=== PATIENT | male | born 1950 | race African-American/Black ===

== ENCOUNTER 2019-02-07 13:56 | Inpatient (IN) | payer OTHER ==
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
[2019-02-07] MEDS ORDERED: SODIUM CHLORIDE 0.9% 500 ML INFUS.BAG IV ONE (14:23)
[2019-02-07 15:02] LABS: BASO % 0.8 % (0-2.0); EOS % 1.1 % (0-4.5); HEMOGLOBIN 12.7 GM/dL (11.7-16.9); LYMPH % 14.6 % (8-40); MCH 28.5 pg (25.7-33.7); MCHC 32.5 g/dl (32.0-35.9); MEAN CELL VOLUME 87.7 fl (80-96); MEAN PLT VOLUME 9.5 fl (7.5-11.1); MONO % 5.6 % (3.8-10.2); NEUT % 77.9 % (42.8-82.8); PLATELET COUNT 209 K/MM3 (134-434); RBC 4.45 M/mm3 (4.00-5.60); RDW 13.6 % (11.9-15.9); WHITE BLOOD COUNT 6.7 K/mm3 (4.0-10.0)
[2019-02-07 15:53] LABS: ALBUMIN 3.4 g/dl (3.4-5.0); BILIRUBIN,TOTAL 0.3 mg/dL (0.2-1); BLOOD UREA NITROGEN 20.7 mg/dL (7-18); CALCIUM 8.9 mg/dL (8.5-10.1); CREATININE 1.5 mg/dL (0.55-1.3); MAGNESIUM 2.5 mg/dL (1.8-2.4); PHOSPHOROUS 2.9 mg/dL (2.5-4.9); POTASSIUM 4.5 mmol/L (3.5-5.1); TOT PROT 6.8 g/dl (6.4-8.2)
[2019-02-07] MEDS ORDERED: INSULIN REGULAR HUMAN 100 UNITS/ML *VIAL SQ ONE (16:02)
[2019-02-07] MEDS ORDERED: INSULIN REGULAR HUMAN 100 UNITS/ML *VIAL ONE (16:17)
--- NOTE | 2019-02-07 16:40 | PDOC ---
Documentation entered by Tony Grace SCRIBE, acting as scribe for Chase Arenas MD. Chase Arenas MD: This documentation has been prepared by the Sanjay reynaga Collisia, SCRIBE, under my direction and personally reviewed by me in its entirety. I confirm that the documentation accurately reflects all work, treatment, procedures, and medical decision making performed by me. Attending Attestation - Resident Resident Name: Lisandro Chatterjee - ED Attending Attestation I have performed the following: I have examined & evaluated the patient, The case was reviewed & discussed with the resident, I agree w/resident's findings & plan - HPI HPI: 02/07/19 16:37 68-year-old male with history of diabetes and substance abuse sent from [facility] detox for medical evaluation of hyperglycemia. Patient has been on alcohol and crack binge, has been noncompliant with his metformin for several weeks, presented to [facility] for detox and was noted to be hyperglycemic so they referred him for evaluation. Admits to polydipsia and polyuria, denies any falls or head injury or headache, no heart or pulmonary complaints, no infectious complaints. - Physicial Exam PE: 02/07/19 16:38 Hemodynamically stable, vital signs normal Well-appearing lying in stretcher, dry mucosa No jaundice or pallor Heart is regular, lungs are clear Abdomen benign Right thigh anterior lateral soft tissue hematoma which is tender to palpation, no obvious bony deformity or tenderness, full range of motion of hip and knee, neurovascularly intact distally. - Medical Decision Making 02/07/19 16:39 68-year-old male with history of diabetes noncompliant with medication, substance abuse, sent for evaluation of hyperglycemia. Rule out DKA, rule out finger fracture from injury. Labs notable for glucose overnight, anion gap normal, acetone negative Right femur x-ray IV fluids Admission Heart Score/ECG Review #1 ECG reviewed & interpreted by me at: 15:19 General ECG Interpretation: Sinus Rhythm, Normal Rate (62), Normal Intervals ( qtc 397), No acute ischemic changes
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
[2019-02-07] MEDS ORDERED: chlordiazePOXIDE HCL 25 MG CAPSULE PO PRN (17:55)
[2019-02-07] MEDS: SODIUM CHLORIDE 1,000 ML IV SCH (18:27)
[2019-02-07] MEDS ORDERED: chlordiazePOXIDE HCL 25 MG CAPSULE ONE (18:49)
[2019-02-07] MEDS: chlordiazePOXIDE HCL 25 MG CAPSULE PO SCH (18:54)
[2019-02-07 20:41] LABS: ALBUMIN 3.2 g/dl (3.4-5.0); BILIRUBIN,TOTAL 0.6 mg/dL (0.2-1); CALCIUM 8.4 mg/dL (8.5-10.1); CREATININE 1.2 mg/dL (0.55-1.3); POTASSIUM 4.4 mmol/L (3.5-5.1); TOT PROT 6.2 g/dl (6.4-8.2)
[2019-02-07] MEDS ORDERED: FOLIC ACID INJECTION - 1 MG, THIAMINE HCL 100 MG, MULTIVIT INJECTION ADULT 10 ML in SOD... IVPB ONE (21:42)
[2019-02-07] MEDS ORDERED: INSULIN (NOVOLOG) ASPART 100 UNITS/ML 10ML VIAL ONE (23:04)
[2019-02-07] MEDS: INSULIN SLIDING SCALE (NOVOLOG) 1 VIAL SQ SCH (23:07)
[2019-02-07] MEDS: HALOPERIDOL 5 MG TABLET (FP) PO SCH (23:32)
[2019-02-07] MEDS: INSULIN (LEVEMIR) 100 UNITS/ML UNITS SQ SCH (23:52)
[2019-02-08] MEDS ORDERED: chlordiazePOXIDE HCL 25 MG CAPSULE ONE ×3 (00:31→11:03)
[2019-02-08] MEDS: chlordiazePOXIDE HCL 25 MG CAPSULE PO SCH ×5 (00:34→23:00)
[2019-02-08 01:16] LABS: PH,URINE 5.5 (5.0-8.0); URINE APPEARANCE CLEAR; URINE BILIRUBIN NEGATIVE (NEGATIVE); URINE COLOR YELLOW; URINE GLUCOSE (UA) 3+ (NEGATIVE); URINE KETONE NEGATIVE (NEGATIVE); URINE LEUK ESTERASE NEGATIVE (NEGATIVE); URINE NITRITE NEGATIVE (NEGATIVE); URINE PROTEIN NEGATIVE (NEGATIVE)
[2019-02-08 05:35] LABS: ALBUMIN 2.8 g/dl (3.4-5.0); BILIRUBIN,TOTAL 0.4 mg/dL (0.2-1); BLOOD UREA NITROGEN 16.1 mg/dL (7-18); CALCIUM 7.8 mg/dL (8.5-10.1); CREATININE 0.9 mg/dL (0.55-1.3); POTASSIUM 4.4 mmol/L (3.5-5.1)
[2019-02-08] MEDS ORDERED: INSULIN (NOVOLOG) ASPART 100 UNITS/ML 10ML VIAL ONE ×3 (07:26→14:18)
[2019-02-08] MEDS: INSULIN SLIDING SCALE (NOVOLOG) 1 VIAL SQ SCH ×4 (07:31→21:50)
--- NOTE | 2019-02-08 08:29 | EKG ---
Test Reason : Blood Pressure : / mmHG Vent. Rate : 062 BPM Atrial Rate : 062 BPM P-R Int : 138 ms QRS Dur : 108 ms QT Int : 392 ms P-R-T Axes : 060 -02 -18 degrees QTc Int : 397 ms NORMAL SINUS RHYTHM NONSPECIFIC T WAVE ABNORMALITY ABNORMAL ECG NO PREVIOUS ECGS AVAILABLE Confirmed by BRITTNI LEONG, LISET ([id number]) on 02/08/2019 8:29:04 AM Referred By: Confirmed By:LISET LEKINS MD
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
[2019-02-08 10:11] LABS: BASO % 0.8 % (0-2.0); EOS % 1.4 % (0-4.5); HEMATOCRIT 35.2 % (35.4-49); HEMOGLOBIN 11.5 GM/dL (11.7-16.9); LYMPH % 24.4 % (8-40); MCH 28.2 pg (25.7-33.7); MCHC 32.7 g/dl (32.0-35.9); MEAN CELL VOLUME 86.5 fl (80-96); MEAN PLT VOLUME 8.7 fl (7.5-11.1); MONO % 5.9 % (3.8-10.2); NEUT % 67.5 % (42.8-82.8); PLATELET COUNT 191 K/MM3 (134-434); RBC 4.07 M/mm3 (4.00-5.60); RDW 13.6 % (11.9-15.9); WHITE BLOOD COUNT 5.8 K/mm3 (4.0-10.0)
[2019-02-08 10:35] LABS: ALBUMIN 2.6 g/dl (3.4-5.0); BILIRUBIN,TOTAL 0.4 mg/dL (0.2-1); CALCIUM 7.9 mg/dL (8.5-10.1); MAGNESIUM 2.1 mg/dL (1.8-2.4); POTASSIUM 3.9 mmol/L (3.5-5.1); TOT PROT 5.5 g/dl (6.4-8.2)
[2019-02-08] MEDS: FOLIC ACID 1 MG TABLET (FP) PO SCH (11:00)
[2019-02-08] MEDS: ASPIRIN COATED 81 MG TABLET.EC PO SCH (11:00)
[2019-02-08] MEDS: INSULIN (LEVEMIR) 100 UNITS/ML UNITS SQ SCH ×2 (11:00→21:49)
[2019-02-08] MEDS ORDERED: ASPIRIN COATED 81 MG TABLET.EC ONE (11:02)
[2019-02-08] MEDS ORDERED: FOLIC ACID 1 MG TABLET (FP) ONE (11:04)
[2019-02-08] MEDS ORDERED: THIAMINE HCL 100 MG TABLET (FP) ONE (11:04)
[2019-02-08] MEDS ORDERED: INSULIN (LEVEMIR) 100 UNITS/ML UNITS SQ ONE (11:06)
[2019-02-08] MEDS: THIAMINE HCL 100 MG TABLET (FP) PO SCH (11:54)
[2019-02-08] MEDS ORDERED: oxyCODONE HCL 5 MG TABLET PO ONE (12:38)
[2019-02-08] MEDS ORDERED: LIDOCAINE 5% TOPICAL PATCH TP ONE (12:39)
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
[2019-02-08] MEDS ORDERED: oxyCODONE HCL 5 MG TABLET ONE (14:16)
[2019-02-08] MEDS ORDERED: LIDOCAINE 5% TOPICAL PATCH ONE (14:17)
[2019-02-08 14:31] LABS: ANISOCYTOSIS 2+; MACROCYTOSIS 0; PLATELET ESTIMATE NORMAL
[2019-02-08 15:28] VITALS: BMI 28.2
[2019-02-08] MEDS: SODIUM CHLORIDE 1,000 ML IV SCH (20:00)
[2019-02-08] MEDS: HALOPERIDOL 5 MG TABLET (FP) PO SCH (21:48)
[2019-02-08] MEDS ORDERED: INSULIN (LEVEMIR) 100 UNITS/ML UNITS SQ SCH (22:00)
[2019-02-08] MEDS ORDERED: LIDOCAINE PATCH REMOVAL MC ONE (22:00)
[2019-02-08] MEDS ORDERED: ACETAMINOPHEN 325 MG TABLET (FP) PO PRN (22:22)
[2019-02-09] MEDS: chlordiazePOXIDE HCL 25 MG CAPSULE PO SCH ×2 (05:00→10:36)
[2019-02-09] MEDS ORDERED: metFORMIN HCL 500 MG TABLET (FP) PO SCH (07:00)
[2019-02-09] MEDS: INSULIN (LEVEMIR) 100 UNITS/ML UNITS SQ SCH (07:01)
[2019-02-09] MEDS: INSULIN SLIDING SCALE (NOVOLOG) 1 VIAL SQ SCH ×2 (07:01→11:18)
[2019-02-09 08:00] LABS: BASO % 0.8 % (0-2.0); EOS % 1.1 % (0-4.5); HEMATOCRIT 35.9 % (35.4-49); HEMOGLOBIN 11.8 GM/dL (11.7-16.9); LYMPH % 21.2 % (8-40); MCH 28.1 pg (25.7-33.7); MCHC 32.8 g/dl (32.0-35.9); MEAN CELL VOLUME 85.9 fl (80-96); MEAN PLT VOLUME 9.1 fl (7.5-11.1); MONO % 5.2 % (3.8-10.2); NEUT % 71.7 % (42.8-82.8); PLATELET COUNT 198 K/MM3 (134-434); RBC 4.18 M/mm3 (4.00-5.60); RDW 13.6 % (11.9-15.9)
[2019-02-09 08:46] LABS: ALBUMIN 2.8 g/dl (3.4-5.0); BILIRUBIN,TOTAL 0.2 mg/dL (0.2-1); BLOOD UREA NITROGEN 15.2 mg/dL (7-18); CALCIUM 8.3 mg/dL (8.5-10.1); CREATININE 0.9 mg/dL (0.55-1.3); POTASSIUM 3.7 mmol/L (3.5-5.1); TOT PROT 5.6 g/dl (6.4-8.2)
--- NOTE | 2019-02-09 08:56 | PN ---
Progress Note (short form) - Note Progress Note: Feels better Less urination Vital Signs Period Temp Pulse Resp BP Sys/Chavarria Pulse Ox Last 24 Hr 97.8 F-98 F 57-80 18-20 94-117/65-68 99-99 PE: AOx3 Neck: Supple, NO JVD HEENT: EOMI Lungs: CTA CVS: S1S2 Abd: Benign EXt: No edema Neuro: No focal deficit CMP Sodium 141 mmol/L (136-145) 02/09/19 06:40 Potassium 3.7 mmol/L (3.5-5.1) 02/09/19 06:40 Chloride 109 mmol/L (98-107) H 02/09/19 06:40 Carbon Dioxide 25 mmol/L (21-32) 02/09/19 06:40 Anion Gap 7 MMOL/L (8-16) L 02/09/19 06:40 BUN 15.2 mg/dL (7-18) 02/09/19 06:40 Creatinine 0.9 mg/dL (0.55-1.3) 02/09/19 06:40 Est GFR (CKD-EPI)AfAm 101.36 02/09/19 06:40 Est GFR (CKD-EPI)NonAf 87.45 02/09/19 06:40 POC Glucometer 190 UNITS (80-120) 02/09/19 05:04 Random Glucose 118 mg/dL (74-106) H 02/09/19 06:40 Hemoglobin A1c % 12.2 % (4.2-6.3) H 02/08/19 09:30 Calcium 8.3 mg/dL (8.5-10.1) L 02/09/19 06:40 Phosphorus 2.9 mg/dL (2.5-4.9) 02/07/19 14:45 Magnesium 2.1 mg/dL (1.8-2.4) 02/08/19 09:30 Total Bilirubin 0.2 mg/dL (0.2-1) 02/09/19 06:40 AST 13 U/L (15-37) L 02/09/19 06:40 ALT 30 U/L (13-61) 02/09/19 06:40 Alkaline Phosphatase 67 U/L (45-117) 02/09/19 06:40 Creatine Kinase 215 U/L (26-308) 02/07/19 19:26 Creatine Kinase Index 1.6 % (0.0-5.0) 02/07/19 19:26 CK-MB (CK-2) 3.6 ng/mL (0.5-3.6) 02/07/19 19:26 Troponin I < 0.02 ng/ml (0.00-0.05) 02/07/19 19:26 Total Protein 5.6 g/dl (6.4-8.2) L 02/09/19 06:40 Albumin 2.8 g/dl (3.4-5.0) L 02/09/19 06:40 Triglycerides 87 mg/dL (0-150) 02/08/19 09:30 Cholesterol 142 mg/dL (50-200) 02/08/19 09:30 Total LDL Cholesterol 90 mg/dL (5-100) 02/08/19 09:30 HDL Cholesterol 40 mg/dL (40-60) 02/08/19 09:30 TSH 3.77 uIU/ml (0.358-3.74) H 02/08/19 09:30 AP; Substance Abuse T2DM: uncontrolled A1c 12.2 Schizophrenia BGM Q AC HS Levemir 15 units BID Novolog SS coverage Add Metformin 500mg BID Will F/U
[2019-02-09] MEDS: ASPIRIN COATED 81 MG TABLET.EC PO SCH (09:57)
[2019-02-09] MEDS: THIAMINE HCL 100 MG TABLET (FP) PO SCH (09:57)
[2019-02-09] MEDS: FOLIC ACID 1 MG TABLET (FP) PO SCH (09:57)
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
[2019-02-09] MEDS ORDERED: chlordiazePOXIDE HCL 25 MG CAPSULE PO ONE ×2 (10:49→11:30)
[2019-02-09 11:37] VITALS: BP 94/65; PULSE 80; TEMP 97.8
[2019-02-10] MEDS ORDERED: chlordiazePOXIDE HCL 10 MG CAPSULE PO PRN
[2019-02-10] MEDS ORDERED: chlordiazePOXIDE HCL 10 MG CAPSULE PO SCH (05:00)
[2019-02-11] MEDS ORDERED: chlordiazePOXIDE HCL 10 MG CAPSULE PO SCH (05:00)
[2019-02-12] MEDS ORDERED: chlordiazePOXIDE HCL 10 MG CAPSULE PO ONE (05:00)
== END 2019-02-09 11:30 | disposition other institution (70) | DRG 638 ==
LOC: JER 13:56 → JERBED 17:22 → J8W 02-08 15:01
PROVIDERS: ADMIT Internal Medicine; ATTEND Nurse Practitioner Family
DX: E11.65 Type 2 diabetes mellitus with hyperglycemia (principal); F10.239 Alcohol dependence with withdrawal, unspecified; F20.9 Schizophrenia, unspecified; F12.10 Cannabis abuse, uncomplicated; F14.10 Cocaine abuse, uncomplicated; Z91.89 Other specified personal risk factors, not elsewhere classified; M79.651 Pain in right thigh; S70.11XA Contusion of right thigh, initial encounter; Y00.XXXA Assault by blunt object, initial encounter; Y93.89 Activity, other specified; Y92.89 Other specified places as the place of occurrence of the external cause; Y99.8 Other external cause status; Z79.4 Long term (current) use of insulin; J45.909 Unspecified asthma, uncomplicated; Z91.14 Patient's other noncompliance with medication regimen; B19.20 Unspecified viral hepatitis C without hepatic coma; Z59.0 Homelessness; Z79.84 Long term (current) use of oral hypoglycemic drugs; Z79.1 Long term (current) use of non-steroidal anti-inflammatories (NSAID)
CPT/HCPCS: 36415; 73552-TC-RT-FY; 80053; 80061; 81003; 82009; 82550; 82553; 82962; 83036; 83721; 83735; 84100; 84443; 84484; 85025; 87077; 87086; 93005; 93010; 99285-25; J7030

== ENCOUNTER 2019-02-09 11:28 | Inpatient (IN) | payer OTHER ==
[2019-02-09 12:17] VITALS: BMI 25.8
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
[2019-02-09] MEDS ORDERED: MENTHOL/PHENOL 1 EACH UD MM PRN (12:57)
[2019-02-09] MEDS ORDERED: ACETAMINOPHEN 325 MG TABLET (FP) PO PRN ×2 (12:57)
[2019-02-09] MEDS ORDERED: BISMUTH SUBSALICYLATE 262 MG/15 ML BTL PO PRN (12:57)
[2019-02-09] MEDS ORDERED: MAGNESIUM HYDROX 2400MG/30ML ORAL SUSPENSION 30 ML CUP PO PRN (12:57)
[2019-02-09] MEDS ORDERED: MELATONIN 5 MG TABLETS PO PRN (12:57)
[2019-02-09] MEDS ORDERED: MAG HYDROX/AL HYDROX/SIMETH 30 ML UNIT-DOSE CUP PO PRN (12:57)
[2019-02-09] MEDS ORDERED: MAGNESIUM CITRATE 300 ML BOTTLE PO PRN (12:57)
[2019-02-09] MEDS ORDERED: hydrOXYzine PAMOATE 25 MG CAPSULE (FP) PO PRN (12:57)
[2019-02-09] MEDS ORDERED: chlordiazePOXIDE HCL 10 MG CAPSULE PO PRN (12:57)
[2019-02-09] MEDS ORDERED: METHOCARBAMOL 500 MG TABLET PO PRN (12:57)
--- NOTE | 2019-02-09 13:14 | PN ---
Teaching Attending Note Name of Resident: Bassem Velazquez ATTENDING PHYSICIAN STATEMENT I saw and evaluated the patient. I reviewed the resident's note and discussed the case with the resident. I agree with the resident's findings and plan as documented. SUBJECTIVE: pt returns from hospital after normalization of glucose and re- instatement of meds , Librium started while hospitalized . XR femur negative for frx . PMHx of DM, Schizophrenia, and Hepatitis C, etoh abuse OBJECTIVE: wnwd , ambul w/ cane . ASSESSMENT AND PLAN: continue Librium protocol detox . d/w pt, agreeable w/ POC psychiatry consult .
[2019-02-09] MEDS: chlordiazePOXIDE HCL 25 MG CAPSULE PO SCH ×2 (15:19→22:33)
[2019-02-09] MEDS: NICOTINE 7 MG/24 HOURS TOPICAL PATCH TD SCH (15:21)
[2019-02-09] MEDS: METHYL SALICYLATE/MENTHOL OINT 30 GM TUBE TP SCH ×2 (15:42→22:33)
[2019-02-09] MEDS ORDERED: INSULIN SLIDING SCALE (NOVOLOG) 1 VIAL SQ SCH ×3 (16:30→22:00)
[2019-02-09] MEDS: metFORMIN HCL 500 MG TABLET (FP) PO SCH (16:56)
[2019-02-09] MEDS: INSULIN SLIDING SCALE (NOVOLOG) 1 VIAL SQ SCH ×2 (18:30→22:35)
[2019-02-09] MEDS ORDERED: INSULIN SLIDING SCALE (NOVOLOG) 1 VIAL SQ ONE (18:42)
[2019-02-09] MEDS: INSULIN (LEVEMIR) 100 UNITS/ML UNITS SQ SCH (22:33)
[2019-02-09] MEDS: THIAMINE HCL 100 MG TABLET (FP) PO SCH (22:33)
[2019-02-10] MEDS: IBUPROFEN 400 MG TABLET (FP) PO PRN (04:51)
[2019-02-10] MEDS: chlordiazePOXIDE HCL 25 MG CAPSULE PO SCH ×3 (05:22→22:54)
[2019-02-10] MEDS: metFORMIN HCL 500 MG TABLET (FP) PO SCH ×2 (07:06→17:25)
[2019-02-10] MEDS: INSULIN (LEVEMIR) 100 UNITS/ML UNITS SQ SCH ×2 (07:06→22:55)
[2019-02-10] MEDS: INSULIN SLIDING SCALE (NOVOLOG) 1 VIAL SQ SCH ×4 (07:07→22:51)
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
[2019-02-10] MEDS: METHYL SALICYLATE/MENTHOL OINT 30 GM TUBE TP SCH ×2 (10:16→23:11)
[2019-02-10] MEDS: ASPIRIN COATED 81 MG TABLET.EC PO SCH (10:16)
[2019-02-10] MEDS: PRENATAL VITAMINS W/ FOLIC ACID TABLET (FP) PO SCH (10:16)
[2019-02-10] MEDS: NICOTINE 7 MG/24 HOURS TOPICAL PATCH TD SCH (10:17)
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
[2019-02-10] MEDS: HYDROCORTISONE 0.5% TOPICAL CREAM 30 GM TUBE TP SCH ×2 (12:43→23:15)
[2019-02-10] MEDS: THIAMINE HCL 100 MG TABLET (FP) PO SCH (22:54)
[2019-02-10] MEDS: HALOPERIDOL 5 MG TABLET (FP) PO SCH (22:54)
[2019-02-10] MEDS: MELATONIN 5 MG TABLETS PO PRN (22:56)
[2019-02-11] MEDS: chlordiazePOXIDE 5 MG CAPSULE PO SCH ×3 (06:02→23:38)
[2019-02-11] MEDS: metFORMIN HCL 500 MG TABLET (FP) PO SCH ×2 (06:02→18:55)
[2019-02-11] MEDS: INSULIN (LEVEMIR) 100 UNITS/ML UNITS SQ SCH ×2 (07:02→23:38)
[2019-02-11] MEDS: INSULIN SLIDING SCALE (NOVOLOG) 1 VIAL SQ SCH ×4 (07:03→23:39)
[2019-02-11] MEDS: IBUPROFEN 400 MG TABLET (FP) PO PRN (07:09)
[2019-02-11] MEDS: NICOTINE 7 MG/24 HOURS TOPICAL PATCH TD SCH (10:30)
[2019-02-11] MEDS: PRENATAL VITAMINS W/ FOLIC ACID TABLET (FP) PO SCH (10:42)
[2019-02-11] MEDS: HYDROCORTISONE 0.5% TOPICAL CREAM 30 GM TUBE TP SCH ×2 (10:42→23:38)
[2019-02-11] MEDS: ASPIRIN COATED 81 MG TABLET.EC PO SCH (10:42)
[2019-02-11] MEDS: METHYL SALICYLATE/MENTHOL OINT 30 GM TUBE TP SCH ×2 (10:44→23:38)
--- NOTE | 2019-02-11 10:48 | PN ---
S CIWA - CIWA Score Nausea/Vomitin-No Nausea/No Vomiting Muscle Tremors: 2 Anxiety: 3 Agitation: 2 Paroxysmal Sweats: 3 Orientation: 0-Oriented Tacttile Disturbances: 0-None Auditory Disturbances: 0-None Visual Disturbances: 0-None Headache: 2-Mild CIWA-Ar Total Score: 12 BHS Progress Note (SOAP) Subjective: c/o sweats, shakes, chills, headache, and anxiety. Objective: 02/11/19 10:48 Vital Signs 02/11/19 02/11/19 02/11/19 03:30 06:00 09:15 Temperature 97.2 F L 97.5 F L Pulse Rate 64 71 Respiratory 18 18 20 Rate Blood Pressure 120/61 127/78 Labs pending. Assessment: 02/11/19 10:48 AOX3, in no acute respiratory distress. Full ROM, ambulating in the unit. withdrawal symptoms. Plan: continue detox.
[2019-02-11] MEDS: HALOPERIDOL 5 MG TABLET (FP) PO SCH (23:38)
[2019-02-11] MEDS: MELATONIN 5 MG TABLETS PO PRN (23:39)
[2019-02-11] MEDS: THIAMINE HCL 100 MG TABLET (FP) PO SCH (23:39)
[2019-02-12] MEDS ORDERED: chlordiazePOXIDE HCL 10 MG CAPSULE PO PRN
[2019-02-12] MEDS: chlordiazePOXIDE HCL 10 MG CAPSULE PO SCH ×3 (04:50→22:18)
[2019-02-12] MEDS: metFORMIN HCL 500 MG TABLET (FP) PO SCH ×2 (07:21→17:01)
[2019-02-12] MEDS: INSULIN (LEVEMIR) 100 UNITS/ML UNITS SQ SCH ×2 (07:21→22:22)
[2019-02-12] MEDS: INSULIN SLIDING SCALE (NOVOLOG) 1 VIAL SQ SCH ×4 (07:22→22:20)
[2019-02-12] MEDS: PRENATAL VITAMINS W/ FOLIC ACID TABLET (FP) PO SCH (10:26)
[2019-02-12] MEDS: METHYL SALICYLATE/MENTHOL OINT 30 GM TUBE TP SCH ×2 (10:26→22:18)
[2019-02-12] MEDS: HYDROCORTISONE 0.5% TOPICAL CREAM 30 GM TUBE TP SCH ×2 (10:26→22:18)
[2019-02-12] MEDS: ASPIRIN COATED 81 MG TABLET.EC PO SCH (10:26)
[2019-02-12] MEDS: NICOTINE 7 MG/24 HOURS TOPICAL PATCH TD SCH (10:27)
--- NOTE | 2019-02-12 13:58 | PN ---
S CIWA - CIWA Score Nausea/Vomitin-No Nausea/No Vomiting Muscle Tremors: None Anxiety: 3 Agitation: 3 Paroxysmal Sweats: 3 Orientation: 0-Oriented Tacttile Disturbances: 0-None Auditory Disturbances: 0-None Visual Disturbances: 0-None Headache: 0-None Present CIWA-Ar Total Score: 9 BHS Progress Note (SOAP) Subjective: Interrupted sleep. Patient c/o nocturia since admission. Nocturia secondary to uncontrolled DM. Patient with DM and hyperglycemia. Patient instructed to follow up with PCP post discharge for management of DM. Objective: 02/12/19 13:53 Last Vital Signs Temp Pulse Resp BP Pulse Ox 97.7 F 79 18 110/59 L 02/12/19 10:09 02/12/19 10:09 02/12/19 10:09 02/12/19 10:09 Laboratory Tests 02/09/19 02/09/19 02/09/19 12:55 13:00 16:32 POC Glucometer 240 463 RPR Titer Nonreactive 02/09/19 02/10/19 21:53 05:09 POC Glucometer 458 264 RPR Titer Admission labs reviewed: hyperglycemia noted Assessment: 02/12/19 13:54 Withdrawal symptoms Noted with hyperglycemia and glycosuria Patient c/o nocturia Plan: Continue detox Encouraged PO water intake Patient scheduled for discharge tomorrow Hyperglycemia secondary to uncontrolled DM: Continue diabetic regimen Glycosuria secondary to uncontrolled DM: continue diabetic regimen Nocturia secondary to uncontrolled DM: encourage diabetic diet and to take diabetic medication as prescribed Instructed to follow up with PCP post discharge for management of DM
[2019-02-12] MEDS: HALOPERIDOL 5 MG TABLET (FP) PO SCH (22:18)
[2019-02-12] MEDS: THIAMINE HCL 100 MG TABLET (FP) PO SCH (22:19)
[2019-02-12] MEDS: MELATONIN 5 MG TABLETS PO PRN (22:19)
[2019-02-13] MEDS ORDERED: chlordiazePOXIDE HCL 10 MG CAPSULE PO ONE (05:00)
[2019-02-13] MEDS: metFORMIN HCL 500 MG TABLET (FP) PO SCH ×2 (06:49→16:40)
[2019-02-13] MEDS: INSULIN SLIDING SCALE (NOVOLOG) 1 VIAL SQ SCH ×3 (06:50→16:40)
[2019-02-13] MEDS: INSULIN (LEVEMIR) 100 UNITS/ML UNITS SQ SCH (06:50)
[2019-02-13] MEDS ORDERED: INSULIN SLIDING SCALE (NOVOLOG) 1 VIAL SQ ONE (07:33)
[2019-02-13] MEDS ORDERED: INSULIN (LEVEMIR) 100 UNITS/ML UNITS SQ ONE (07:34)
[2019-02-13] MEDS: NICOTINE 7 MG/24 HOURS TOPICAL PATCH TD SCH (10:18)
[2019-02-13] MEDS: PRENATAL VITAMINS W/ FOLIC ACID TABLET (FP) PO SCH (10:18)
[2019-02-13] MEDS: HYDROCORTISONE 0.5% TOPICAL CREAM 30 GM TUBE TP SCH (10:19)
[2019-02-13] MEDS: METHYL SALICYLATE/MENTHOL OINT 30 GM TUBE TP SCH (10:19)
[2019-02-13] MEDS: ASPIRIN COATED 81 MG TABLET.EC PO SCH (10:19)
[2019-02-13 13:05] VITALS: BP 128/71; PULSE 62; TEMP 97
--- NOTE | 2019-02-13 17:09 | DS ---
[facility] Detox Discharge Summary Admission Date: 02/09/19 Discharge Date: 02/13/19 - History Present History: Alcohol Dependence, Cannabis Dependence, Cocaine Dependence Additional Comments: PATIENT DESIRES TO GO TO [facility] ([place], [place]) FOR AFTERCARE. HOWEVER, NO REHAB BEDS AREA VALUABLE AT THAT LOCATION ART THIS TIME. PATIENT WILL GO TO [facility]IDENT[facility] FOR TIME BEING, THEN WILL APPLY FOR ADMISSION AT [facility] IN THE NEXT DAY OR TWO. PATIENT WAS DISCHARGED FROM DETOX UNIT IN STABLE MEDICAL CONDITION. Pertinent Past History: Type II DM, HTN, Schizophrenia, Bronchial Asthma, Hep C, Bipolar Disorder, Schizoaffective Disorder, Nicotine Dependence. - Physical Exam Results Vital Signs: Vital Signs Temperature 97.0 F L 02/13/19 13:03 Pulse Rate 62 02/13/19 13:03 Respiratory Rate 18 02/13/19 13:03 Blood Pressure 128/71 02/13/19 13:03 O2 Sat by Pulse Oximetry (%) Pertinent Admission Physical Exam Findings: WITHDRAWAL SYMPTOMS. Laboratory Tests 02/09/19 02/09/19 02/09/19 12:55 13:00 16:32 POC Glucometer 240 463 RPR Titer Nonreactive 02/09/19 02/10/19 02/10/19 21:53 05:09 11:32 POC Glucometer 458 264 400 RPR Titer 02/10/19 02/10/19 02/10/19 16:31 19:53 22:49 POC Glucometer 347 465 410 RPR Titer 02/11/19 02/11/19 02/11/19 03:43 06:04 11:58 POC Glucometer 337 418 415 RPR Titer 02/11/19 02/12/19 02/12/19 17:19 04:06 16:43 POC Glucometer 475 420 491 RPR Titer 02/12/19 02/13/19 02/13/19 22:11 06:21 11:46 POC Glucometer 409 254 443 RPR Titer 02/13/19 15:18 POC Glucometer 307 RPR Titer ADMISSION LABS NOTED. - Treatment Hospital Course: Detox Protocol Followed, Detoxed Safely, Responded well, Discharged Condition Good Patient has Accepted a Rehab Referral to: PT WILL APPLY FOR ADMISSION TO [facility] IN NEXT FEW DAY - Medication Discharge Medications: Ambulatory Orders Haloperidol [Haldol -] 5 mg PO HS 02/07/19 Acetaminophen [Tylenol .Regular Strength -] 650 mg PO Q4H PRN tablet 02/09/19 Chlordiazepoxide HCl 25 mg PO Q6H 02/09/19 Folic Acid - 1 mg PO DAILY tablet 02/09/19 Insulin (Levemir) [Levemir Vial] 15 units SQ BID@0700,2200 units 02/09/19 Insulin Sliding Scale [Novolog Vial Sliding Scale -] 6 vial SQ ACHS 02/09/19 Thiamine HCl [Vitamin B1 -] 100 mg PO DAILY tablet 02/09/19 Aspirin [Aspirin EC] 81 mg PO DAILY 30 Days #30 tablet. 02/13/19 metFORMIN HCL [Glucophage -] 500 mg PO BID@0700,1630 30 Days #60 tablet - Diagnosis (1) Alcohol dependence with uncomplicated withdrawal Current Visit: Yes Status: Acute (2) Cannabis dependence Current Visit: Yes Status: Acute (3) Cocaine dependence Current Visit: Yes Status: Acute Qualifiers: Substance use status: in withdrawal Qualified Code(s): F14.23 - Cocaine dependence with withdrawal (4) Alcohol use disorder Current Visit: Yes Status: Acute (5) Schizophrenia Current Visit: Yes Status: Chronic Qualifiers: Schizophrenia type: unspecified Qualified Code(s): F20.9 - Schizophrenia, unspecified (6) Diabetes mellitus Current Visit: Yes Status: Chronic Qualifiers: Diabetes mellitus type: type 2 Diabetes mellitus lobsterman insulin use: with chcf use Diabetes mellitus complication status: with other specified complication Qualified Code(s): E11.69 - Type 2 diabetes mellitus with other specified complication; Z79.4 - terminal press operator (current) use of insulin (7) Substance induced mood disorder Current Visit: Yes Status: Acute (8) Substance-induced sleep disorder Current Visit: Yes Status: Acute (9) Bronchial asthma Current Visit: Yes Status: Chronic Qualifiers: Asthma severity: unspecified severity Asthma persistence: unspecified Asthma complication type: uncomplicated Qualified Code(s): J45.909 - Unspecified asthma, uncomplicated (10) Hepatitis C Current Visit: Yes Status: Chronic Qualifiers: Viral hepatitis chronicity: chronic Hepatic coma status: without hepatic coma Qualified Code(s): B18.2 - Chronic viral hepatitis C (11) Nicotine dependence Current Visit: Yes Status: Chronic Qualifiers: Nicotine product type: cigarettes Substance use status: uncomplicated Qualified Code(s): F17.210 - Nicotine dependence, cigarettes, uncomplicated (12) Schizoaffective disorder Current Visit: Yes Status: Chronic Qualifiers: Schizoaffective disorder type: unspecified Qualified Code(s): F25.9 - Schizoaffective disorder, unspecified - AMA Did Patient Leave Against Medical Advice: No
== END 2019-02-13 16:38 | disposition home or self-care (01) | DRG 897 ==
LOC: YASAS 11:28 → Y6N 13:25
PROVIDERS: ADMIT Surgery; ATTEND Surgery
PROC: HZ2ZZZZ Detoxification Services for Substance Abuse Treatment (ICD-10-PCS; principal; 2019-02-09)
DX: F10.230 Alcohol dependence with withdrawal, uncomplicated (principal); F14.20 Cocaine dependence, uncomplicated; F19.282 Other psychoactive substance dependence with psychoactive substance-induced sleep disorder; F12.20 Cannabis dependence, uncomplicated; F17.210 Nicotine dependence, cigarettes, uncomplicated; F19.24 Other psychoactive substance dependence with psychoactive substance-induced mood disorder; F25.9 Schizoaffective disorder, unspecified; F31.9 Bipolar disorder, unspecified; I10 Essential (primary) hypertension; E11.65 Type 2 diabetes mellitus with hyperglycemia; Z79.84 Long term (current) use of oral hypoglycemic drugs; J45.909 Unspecified asthma, uncomplicated; B18.2 Chronic viral hepatitis C; Z91.5 Personal history of self-harm; Z59.0 Homelessness
CPT/HCPCS: 36415; 73552-TC-RT-FY; 82962; 86593

== ENCOUNTER 2021-03-06 16:49 | Inpatient (IN) | payer OTHER ==
[2021-03-06 18:57] VITALS: BMI 28.8
[2021-03-06] MEDS ORDERED: ONDANSETRON *ODT* 4 MG TABLET SL PRN (20:47)
[2021-03-06] MEDS ORDERED: MAG HYDROX/AL HYDROX/SIMETH 30 ML UNIT-DOSE CUP PO PRN (20:47)
[2021-03-06] MEDS ORDERED: ACETAMINOPHEN 325 MG TABLET (FP) PO PRN ×2 (20:47)
[2021-03-06] MEDS ORDERED: NICOTINE POLACRILEX 2 MG GUM BUC PRN (20:47)
[2021-03-06] MEDS ORDERED: MAGNESIUM HYDROX 2400MG/30ML ORAL SUSPENSION 30 ML CUP PO PRN (20:47)
[2021-03-06] MEDS ORDERED: MAGNESIUM CITRATE 300 ML BOTTLE PO PRN (20:47)
[2021-03-06] MEDS ORDERED: BISMUTH SUBSALICYLATE 524 MG/30 ML PO PRN (20:47)
[2021-03-06] MEDS ORDERED: MENTHOL/PHENOL 1 EACH UD MM PRN (20:47)
[2021-03-06] MEDS ORDERED: IBUPROFEN 400 MG TABLET (FP) PO PRN (20:47)
[2021-03-06] MEDS ORDERED: diazePAM 5 MG TABLET ONE (22:08)
[2021-03-06] MEDS: diazePAM 5 MG TABLET PO SCH (22:19)
[2021-03-06] MEDS: MELATONIN 5 MG TABLETS PO SCH (22:19)
[2021-03-06] MEDS: THIAMINE HCL 100 MG TABLET (FP) PO SCH (22:19)
[2021-03-07] MEDS: diazePAM 5 MG TABLET PO SCH ×4 (06:21→22:37)
[2021-03-07] MEDS: ASPIRIN COATED 81 MG TABLET.EC PO SCH (10:50)
[2021-03-07] MEDS: PRENATAL VITAMINS W/ FOLIC ACID TABLET (FP) PO SCH (10:51)
[2021-03-07] MEDS: NICOTINE 14 MG/24 HOURS TOPICAL PATCH TD SCH (10:51)
[2021-03-07 11:40] LABS: HEMATOCRIT 36.4 % (35.4-49); HEMOGLOBIN 12.2 GM/dL (11.7-16.9); MCH 28.8 pg (25.7-33.7); MCHC 33.6 g/dl (32.0-35.9); MEAN CELL VOLUME 85.8 fl (80-96); MEAN PLT VOLUME 9.2 fl (7.5-11.1); PLATELET COUNT 167 10^3/uL (134-434); RBC 4.25 M/mm3 (4.00-5.60); RDW 13.6 % (11.9-15.9); WHITE BLOOD COUNT 4.6 K/mm3 (4.0-10.0)
[2021-03-07 11:42] LABS: CHLORIDE 103 mmol/L (98-107); SODIUM 137 mmol/L (136-145)
[2021-03-07 11:47] LABS: CALCIUM 8.4 mg/dL (8.5-10.1)
[2021-03-07 11:48] LABS: ALBUMIN 2.9 g/dl (3.4-5.0); ANION GAP 7 MMOL/L (8-16); CO2 27 mmol/L (21-32)
[2021-03-07 11:50] LABS: SGPT/ALT 47 U/L (13-61)
[2021-03-07 11:51] LABS: BILIRUBIN,TOTAL 0.2 mg/dL (0.2-1); SGOT/AST 24 U/L (15-37)
[2021-03-07 11:52] LABS: TOT PROT 6.3 g/dl (6.4-8.2)
[2021-03-07 11:53] LABS: ALK PHOS 55 U/L (45-117); GLUCOSE,RANDOM 407 mg/dL (74-106)
[2021-03-07] MEDS: INSULIN (NOVOLOG) ASPART 100 UNITS/ML 10ML VIAL SQ SCH ×3 (12:02→22:41)
[2021-03-07] MEDS: metFORMIN HCL 500 MG TABLET (FP) PO SCH (18:20)
[2021-03-07] MEDS ORDERED: INSULIN (LEVEMIR) 100 UNITS/ML UNITS SQ SCH (22:00)
[2021-03-07] MEDS: THIAMINE HCL 100 MG TABLET (FP) PO SCH (22:37)
[2021-03-07] MEDS: MELATONIN 5 MG TABLETS PO SCH (22:38)
[2021-03-08] MEDS: diazePAM 5 MG TABLET PO SCH ×3 (06:08→22:46)
[2021-03-08] MEDS: INSULIN (NOVOLOG) ASPART 100 UNITS/ML 10ML VIAL SQ SCH ×4 (06:11→22:49)
[2021-03-08] MEDS: metFORMIN HCL 500 MG TABLET (FP) PO SCH ×2 (06:11→18:07)
[2021-03-08] MEDS: PRENATAL VITAMINS W/ FOLIC ACID TABLET (FP) PO SCH (10:30)
[2021-03-08] MEDS: diazePAM 5 MG TABLET PO PRN (10:31)
[2021-03-08] MEDS: ASPIRIN COATED 81 MG TABLET.EC PO SCH (10:31)
[2021-03-08] MEDS: NICOTINE 14 MG/24 HOURS TOPICAL PATCH TD SCH (10:33)
[2021-03-08] MEDS: MELATONIN 5 MG TABLETS PO SCH (22:46)
[2021-03-08] MEDS: THIAMINE HCL 100 MG TABLET (FP) PO SCH (22:46)
[2021-03-08] MEDS ORDERED: INSULIN SLIDING SCALE (NOVOLOG) 1 VIAL SQ ONE (22:49)
[2021-03-09] MEDS: diazePAM 5 MG TABLET PO SCH ×2 (05:22→18:09)
[2021-03-09] MEDS: METHOCARBAMOL 500 MG TABLET PO PRN ×2 (05:23→22:42)
[2021-03-09] MEDS: metFORMIN HCL 500 MG TABLET (FP) PO SCH ×2 (06:30→17:06)
[2021-03-09] MEDS: INSULIN (NOVOLOG) ASPART 100 UNITS/ML 10ML VIAL SQ SCH ×4 (06:30→22:44)
[2021-03-09] MEDS: diazePAM 5 MG TABLET PO PRN (08:33)
[2021-03-09] MEDS: PRENATAL VITAMINS W/ FOLIC ACID TABLET (FP) PO SCH (10:44)
[2021-03-09] MEDS: NICOTINE 14 MG/24 HOURS TOPICAL PATCH TD SCH (10:46)
[2021-03-09] MEDS: ASPIRIN COATED 81 MG TABLET.EC PO SCH (10:46)
[2021-03-09] MEDS ORDERED: NITROFURANTOIN MACROCRYSTAL 50 MG CAPSULE (FP) PO SCH (16:45)
[2021-03-09] MEDS ORDERED: INSULIN SLIDING SCALE (NOVOLOG) 1 VIAL SQ ONE (17:02)
[2021-03-09 18:21] LABS: URINE APPEARANCE CLEAR; URINE BILIRUBIN NEGATIVE (NEGATIVE); URINE COLOR YELLOW; URINE GLUCOSE (UA) 3+ (NEGATIVE); URINE KETONE NEGATIVE (NEGATIVE); URINE LEUK ESTERASE NEGATIVE (NEGATIVE); URINE NITRITE NEGATIVE (NEGATIVE); URINE PROTEIN NEGATIVE (NEGATIVE); URINE UROBILINOGEN 0.2 mg/dL (0.2-1.0)
[2021-03-09] MEDS: MELATONIN 5 MG TABLETS PO SCH (22:42)
[2021-03-09] MEDS: THIAMINE HCL 100 MG TABLET (FP) PO SCH (22:42)
[2021-03-10] MEDS ORDERED: diazePAM 5 MG TABLET PO ONE (06:00)
[2021-03-10] MEDS: INSULIN (NOVOLOG) ASPART 100 UNITS/ML 10ML VIAL SQ SCH ×2 (06:14→12:14)
[2021-03-10] MEDS: metFORMIN HCL 500 MG TABLET (FP) PO SCH (06:14)
[2021-03-10 09:21] VITALS: BP 108/71; TEMP 97.1
[2021-03-10 09:45] VITALS: PULSE 79
[2021-03-10] MEDS: ASPIRIN COATED 81 MG TABLET.EC PO SCH (10:08)
[2021-03-10] MEDS: PRENATAL VITAMINS W/ FOLIC ACID TABLET (FP) PO SCH (10:08)
[2021-03-10] MEDS: NICOTINE 14 MG/24 HOURS TOPICAL PATCH TD SCH (10:09)
== END 2021-03-10 12:55 | disposition home or self-care (01) | DRG 897 ==
LOC: YASAS 16:49 → Y6N 23:07 → Y3N 03-07 01:01
PROVIDERS: ADMIT Allergy & Immunology; ATTEND Allergy & Immunology
PROC: HZ2ZZZZ Detoxification Services for Substance Abuse Treatment (ICD-10-PCS; principal; 2021-03-06)
DX: F10.230 Alcohol dependence with withdrawal, uncomplicated (principal); F14.20 Cocaine dependence, uncomplicated; F20.0 Paranoid schizophrenia; F12.20 Cannabis dependence, uncomplicated; F17.210 Nicotine dependence, cigarettes, uncomplicated; F19.24 Other psychoactive substance dependence with psychoactive substance-induced mood disorder; F25.9 Schizoaffective disorder, unspecified; F41.9 Anxiety disorder, unspecified; E11.319 Type 2 diabetes mellitus with unspecified diabetic retinopathy without macular edema; B18.2 Chronic viral hepatitis C; J45.909 Unspecified asthma, uncomplicated; R26.2 Difficulty in walking, not elsewhere classified; Z99.89 Dependence on other enabling machines and devices; Z56.0 Unemployment, unspecified; Z59.0 Homelessness
CPT/HCPCS: 36415; 71046-TC-FY; 80053; 81003; 82962; 83036; 85027; 86780; 93005; 93010; C9803; U0003; U0005

== ENCOUNTER 2021-07-16 14:37 | Inpatient (IN) | payer OTHER ==
[2021-07-16] MEDS ORDERED: MAG HYDROX/AL HYDROX/SIMETH 30 ML UNIT-DOSE CUP PO PRN (16:10)
[2021-07-16] MEDS ORDERED: chlordiazePOXIDE HCL 25 MG CAPSULE PO PRN (16:10)
[2021-07-16] MEDS ORDERED: IBUPROFEN 400 MG TABLET (FP) PO PRN (16:10)
[2021-07-16] MEDS ORDERED: NICOTINE 10 MG CARTRIDGE (INHALER) IH PRN (16:10)
[2021-07-16] MEDS ORDERED: MENTHOL/PHENOL 1 EACH UD MM PRN (16:10)
[2021-07-16] MEDS ORDERED: MAGNESIUM HYDROX 2400MG/30ML ORAL SUSPENSION 30 ML CUP PO PRN (16:10)
[2021-07-16] MEDS ORDERED: BISMUTH SUBSALICYLATE 524 MG/30 ML PO PRN (16:10)
[2021-07-16] MEDS ORDERED: ACETAMINOPHEN 325 MG TABLET (FP) PO PRN ×2 (16:10)
[2021-07-16] MEDS ORDERED: ONDANSETRON *ODT* 4 MG TABLET SL PRN (16:10)
[2021-07-16] MEDS ORDERED: MAGNESIUM CITRATE 300 ML BOTTLE PO PRN (16:10)
[2021-07-16] MEDS ORDERED: INSULIN SLIDING SCALE (NOVOLOG) 1 VIAL SQ SCH (16:30)
[2021-07-16] MEDS ORDERED: INSULIN SLIDING SCALE (NOVOLOG) 1 VIAL SQ ONE (17:35)
[2021-07-16] MEDS: metFORMIN HCL 500 MG TABLET (FP) PO SCH (18:09)
[2021-07-16] MEDS: chlordiazePOXIDE HCL 25 MG CAPSULE PO SCH ×2 (18:09→22:35)
[2021-07-16] MEDS: hydrOXYzine PAMOATE 25 MG CAPSULE (FP) PO SCH ×2 (18:09→22:35)
[2021-07-16] MEDS: METHOCARBAMOL 500 MG TABLET PO PRN (18:10)
[2021-07-16] MEDS: MELATONIN 5 MG TABLETS PO SCH (22:35)
[2021-07-16] MEDS: THIAMINE HCL 100 MG TABLET (FP) PO SCH (22:35)
[2021-07-16] MEDS: INSULIN SLIDING SCALE (NOVOLOG) 1 VIAL SQ SCH (22:37)
[2021-07-17] MEDS: hydrOXYzine PAMOATE 25 MG CAPSULE (FP) PO SCH ×5 (06:02→23:22)
[2021-07-17] MEDS: metFORMIN HCL 500 MG TABLET (FP) PO SCH ×2 (06:02→18:36)
[2021-07-17] MEDS: INSULIN SLIDING SCALE (NOVOLOG) 1 VIAL SQ SCH ×4 (06:33→23:21)
[2021-07-17] MEDS: chlordiazePOXIDE HCL 25 MG CAPSULE PO SCH ×2 (06:34→10:35)
[2021-07-17] MEDS: PRENATAL VITAMINS W/ FOLIC ACID TABLET (FP) PO SCH (10:35)
[2021-07-17] MEDS: METHOCARBAMOL 500 MG TABLET PO PRN (11:37)
[2021-07-17 12:31] LABS: HEMATOCRIT 39.8 % (35.4-49); HEMOGLOBIN 13.1 GM/dL (11.7-16.9); MCH 27.6 pg (25.7-33.7); MCHC 32.8 g/dl (32.0-35.9); MEAN PLT VOLUME 9.8 fl (7.5-11.1); PLATELET COUNT 166 10^3/uL (134-434); RBC 4.74 M/mm3 (4.00-5.60); RDW 14.3 % (11.9-15.9); WHITE BLOOD COUNT 5.6 K/mm3 (4.0-10.0)
[2021-07-17 12:45] LABS: ALBUMIN 3.2 g/dl (3.4-5.0)
[2021-07-17 12:46] LABS: BLOOD UREA NITROGEN 18.2 mg/dL (7-18)
[2021-07-17 12:49] LABS: CREATININE 1.2 mg/dL (0.55-1.3)
[2021-07-17 12:50] LABS: BILIRUBIN,TOTAL 0.6 mg/dL (0.2-1); TOT PROT 6.6 g/dl (6.4-8.2)
[2021-07-17] MEDS ORDERED: diazePAM 5 MG TABLET PO PRN (13:58)
[2021-07-17] MEDS ORDERED: ACETAMINOPHEN 500 MG TABLET (FP) PO PRN (16:58)
[2021-07-17] MEDS: ACETAMINOPHEN 325 MG TABLET (FP) PO ONE ×2 (18:37→19:17)
[2021-07-17] MEDS: diazePAM 5 MG TABLET PO SCH ×2 (18:37→23:22)
[2021-07-17] MEDS: MELATONIN 5 MG TABLETS PO SCH (23:21)
[2021-07-17] MEDS: THIAMINE HCL 100 MG TABLET (FP) PO SCH (23:22)
[2021-07-17] MEDS: ACETAMINOPHEN 500 MG TABLET (FP) PO PRN (23:39)
[2021-07-17] MEDS: diazePAM 5 MG TABLET PO PRN (23:41)
[2021-07-18] MEDS ORDERED: chlordiazePOXIDE HCL 25 MG CAPSULE PO SCH (05:00)
[2021-07-18] MEDS: hydrOXYzine PAMOATE 25 MG CAPSULE (FP) PO SCH ×5 (05:06→23:02)
[2021-07-18] MEDS: diazePAM 5 MG TABLET PO SCH ×4 (05:12→23:02)
[2021-07-18] MEDS: INSULIN SLIDING SCALE (NOVOLOG) 1 VIAL SQ SCH ×4 (06:11→23:01)
[2021-07-18] MEDS: metFORMIN HCL 500 MG TABLET (FP) PO SCH ×2 (06:11→17:46)
[2021-07-18] MEDS: diazePAM 5 MG TABLET PO PRN (09:15)
[2021-07-18] MEDS: METHOCARBAMOL 500 MG TABLET PO PRN (09:16)
[2021-07-18] MEDS: PRENATAL VITAMINS W/ FOLIC ACID TABLET (FP) PO SCH (10:41)
[2021-07-18] MEDS: LIDOCAINE 5% TOPICAL PATCH TP SCH (11:43)
[2021-07-18] MEDS: MELATONIN 5 MG TABLETS PO SCH (23:01)
[2021-07-18] MEDS: LIDOCAINE PATCH REMOVAL MC SCH (23:01)
[2021-07-18] MEDS: THIAMINE HCL 100 MG TABLET (FP) PO SCH (23:02)
[2021-07-19] MEDS ORDERED: chlordiazePOXIDE HCL 10 MG CAPSULE PO PRN
[2021-07-19] MEDS ORDERED: chlordiazePOXIDE HCL 10 MG CAPSULE PO SCH (05:00)
[2021-07-19] MEDS: diazePAM 5 MG TABLET PO SCH ×3 (06:03→22:53)
[2021-07-19] MEDS: metFORMIN HCL 500 MG TABLET (FP) PO SCH ×2 (06:03→17:37)
[2021-07-19] MEDS: hydrOXYzine PAMOATE 25 MG CAPSULE (FP) PO SCH ×5 (06:03→22:53)
[2021-07-19] MEDS: INSULIN SLIDING SCALE (NOVOLOG) 1 VIAL SQ SCH ×4 (06:07→22:56)
[2021-07-19] MEDS: diazePAM 5 MG TABLET PO PRN (10:32)
[2021-07-19] MEDS: PRENATAL VITAMINS W/ FOLIC ACID TABLET (FP) PO SCH (10:33)
[2021-07-19] MEDS: LIDOCAINE 5% TOPICAL PATCH TP SCH (10:33)
[2021-07-19] MEDS: METHOCARBAMOL 500 MG TABLET PO PRN ×2 (10:34→19:38)
[2021-07-19] MEDS: ACETAMINOPHEN 500 MG TABLET (FP) PO PRN (19:37)
[2021-07-19] MEDS: MELATONIN 5 MG TABLETS PO SCH (22:53)
[2021-07-19] MEDS: THIAMINE HCL 100 MG TABLET (FP) PO SCH (22:53)
[2021-07-19] MEDS: LIDOCAINE PATCH REMOVAL MC SCH (23:04)
[2021-07-20] MEDS ORDERED: chlordiazePOXIDE HCL 10 MG CAPSULE PO SCH (05:00)
[2021-07-20] MEDS: hydrOXYzine PAMOATE 25 MG CAPSULE (FP) PO SCH ×5 (07:45→22:52)
[2021-07-20] MEDS: diazePAM 5 MG TABLET PO SCH ×2 (07:45→17:40)
[2021-07-20] MEDS: metFORMIN HCL 500 MG TABLET (FP) PO SCH ×2 (07:46→17:40)
[2021-07-20] MEDS: INSULIN SLIDING SCALE (NOVOLOG) 1 VIAL SQ SCH ×4 (07:46→22:51)
[2021-07-20] MEDS: LIDOCAINE 5% TOPICAL PATCH TP SCH (10:22)
[2021-07-20] MEDS: diazePAM 5 MG TABLET PO PRN (10:22)
[2021-07-20] MEDS: PRENATAL VITAMINS W/ FOLIC ACID TABLET (FP) PO SCH (10:22)
[2021-07-20] MEDS ORDERED: INSULIN (LEVEMIR) 100 UNITS/ML UNITS SQ ONE (21:00)
[2021-07-20] MEDS: LIDOCAINE PATCH REMOVAL MC SCH (22:51)
[2021-07-20] MEDS: MELATONIN 5 MG TABLETS PO SCH (22:51)
[2021-07-20] MEDS: THIAMINE HCL 100 MG TABLET (FP) PO SCH (22:52)
[2021-07-21] MEDS ORDERED: chlordiazePOXIDE HCL 10 MG CAPSULE PO ONE (05:00)
[2021-07-21] MEDS ORDERED: diazePAM 5 MG TABLET PO ONE (06:00)
[2021-07-21] MEDS: metFORMIN HCL 500 MG TABLET (FP) PO SCH ×2 (06:27→18:04)
[2021-07-21] MEDS: hydrOXYzine PAMOATE 25 MG CAPSULE (FP) PO SCH ×5 (06:27→23:36)
[2021-07-21] MEDS: INSULIN SLIDING SCALE (NOVOLOG) 1 VIAL SQ SCH ×4 (07:08→23:32)
[2021-07-21] MEDS: LIDOCAINE 5% TOPICAL PATCH TP SCH (10:49)
[2021-07-21] MEDS: PRENATAL VITAMINS W/ FOLIC ACID TABLET (FP) PO SCH (10:50)
[2021-07-21] MEDS ORDERED: INSULIN (LEVEMIR) 100 UNITS/ML UNITS SQ ONE ×2 (22:00)
[2021-07-21] MEDS: THIAMINE HCL 100 MG TABLET (FP) PO SCH (23:36)
[2021-07-21] MEDS: MELATONIN 5 MG TABLETS PO SCH (23:36)
[2021-07-21] MEDS: LIDOCAINE PATCH REMOVAL MC SCH (23:37)
[2021-07-22] MEDS: hydrOXYzine PAMOATE 25 MG CAPSULE (FP) PO SCH ×3 (06:05→13:37)
[2021-07-22] MEDS: metFORMIN HCL 500 MG TABLET (FP) PO SCH (06:11)
[2021-07-22] MEDS: INSULIN SLIDING SCALE (NOVOLOG) 1 VIAL SQ SCH ×4 (07:00→21:12)
[2021-07-22] MEDS: PRENATAL VITAMINS W/ FOLIC ACID TABLET (FP) PO SCH (10:14)
[2021-07-22] MEDS: LIDOCAINE 5% TOPICAL PATCH TP SCH (10:15)
[2021-07-22] MEDS: MELATONIN 5 MG TABLETS PO SCH (21:11)
[2021-07-22] MEDS: THIAMINE HCL 100 MG TABLET (FP) PO SCH (21:11)
[2021-07-22] MEDS ORDERED: INSULIN (LEVEMIR) 100 UNITS/ML UNITS SQ ONE (22:00)
[2021-07-22] MEDS: LIDOCAINE PATCH REMOVAL MC SCH (22:38)
[2021-07-23] MEDS: INSULIN SLIDING SCALE (NOVOLOG) 1 VIAL SQ SCH ×4 (07:16→22:45)
[2021-07-23] MEDS: PRENATAL VITAMINS W/ FOLIC ACID TABLET (FP) PO SCH (10:34)
[2021-07-23] MEDS: LIDOCAINE 5% TOPICAL PATCH TP SCH (10:35)
[2021-07-23] MEDS ORDERED: INSULIN (LEVEMIR) 100 UNITS/ML UNITS SQ ONE (22:00)
[2021-07-23] MEDS: LIDOCAINE PATCH REMOVAL MC SCH (22:46)
[2021-07-23] MEDS: THIAMINE HCL 100 MG TABLET (FP) PO SCH (22:46)
[2021-07-23] MEDS: MELATONIN 5 MG TABLETS PO SCH (22:46)
[2021-07-24] MEDS: INSULIN SLIDING SCALE (NOVOLOG) 1 VIAL SQ SCH ×2 (06:42→12:31)
[2021-07-24] MEDS: PRENATAL VITAMINS W/ FOLIC ACID TABLET (FP) PO SCH (10:36)
[2021-07-24] MEDS: LIDOCAINE 5% TOPICAL PATCH TP SCH (10:44)
[2021-07-24 13:07] VITALS: BP 115/68; PULSE 79; TEMP 97.6
== END 2021-07-24 14:48 | disposition home or self-care (01) | DRG 897 ==
LOC: YASAS 14:37 → Y3N 16:27
PROVIDERS: ADMIT Allergy & Immunology; ATTEND Allergy & Immunology
PROC: HZ2ZZZZ Detoxification Services for Substance Abuse Treatment (ICD-10-PCS; principal; 2021-07-16)
DX: F10.230 Alcohol dependence with withdrawal, uncomplicated (principal); F14.20 Cocaine dependence, uncomplicated; F12.10 Cannabis abuse, uncomplicated; F17.210 Nicotine dependence, cigarettes, uncomplicated; F41.9 Anxiety disorder, unspecified; F31.9 Bipolar disorder, unspecified; F25.9 Schizoaffective disorder, unspecified; F19.24 Other psychoactive substance dependence with psychoactive substance-induced mood disorder; J45.909 Unspecified asthma, uncomplicated; M79.606 Pain in leg, unspecified; B18.2 Chronic viral hepatitis C; E11.65 Type 2 diabetes mellitus with hyperglycemia; M54.31 Sciatica, right side; R26.2 Difficulty in walking, not elsewhere classified; Z99.89 Dependence on other enabling machines and devices; Z91.14 Patient's other noncompliance with medication regimen; Z79.4 Long term (current) use of insulin; Z79.84 Long term (current) use of oral hypoglycemic drugs; Z56.0 Unemployment, unspecified; Z59.00 Homelessness unspecified
CPT/HCPCS: 36415; 80053; 82962; 85027; 86780; C9803; U0003; U0005

== ENCOUNTER 2021-12-31 20:06 | Inpatient (IN) | payer OTHER ==
[2021-12-31 21:10] VITALS: BMI 26.4
[2021-12-31] MEDS ORDERED: BENZOCAINE/MENTHOL (CHLORASEPTIC ) LOZENGE MM PRN (22:17)
[2021-12-31] MEDS ORDERED: IBUPROFEN 600 MG TABLET (FP) PO PRN (22:17)
[2021-12-31] MEDS ORDERED: MAGNESIUM CITRATE 300 ML BOTTLE PO PRN (22:17)
[2021-12-31] MEDS ORDERED: NICOTINE 10 MG CARTRIDGE (INHALER) IH PRN (22:17)
[2021-12-31] MEDS ORDERED: MAG HYDROX/AL HYDROX/SIMETH 30 ML UNIT-DOSE CUP PO PRN (22:17)
[2021-12-31] MEDS ORDERED: BISMUTH SUBSALICYLATE 524 MG/30 ML PO PRN (22:17)
[2021-12-31] MEDS ORDERED: MAGNESIUM HYDROX 2400MG/30ML ORAL SUSPENSION 30 ML CUP PO PRN (22:17)
[2021-12-31] MEDS ORDERED: LOPERAMIDE HCL 2 MG CAPSULE PO PRN (22:17)
[2021-12-31] MEDS ORDERED: ONDANSETRON *ODT* 4 MG TABLET SL PRN (22:17)
[2021-12-31] MEDS ORDERED: IBUPROFEN 400 MG TABLET (FP) PO PRN (22:17)
[2021-12-31] MEDS ORDERED: ACETAMINOPHEN 325 MG TABLET (FP) PO PRN ×2 (22:17)
[2021-12-31] MEDS ORDERED: DICYCLOMINE HCL 10 MG CAPSULE PO PRN (22:17)
[2022-01-01] MEDS ORDERED: INSULIN (NOVOLOG) ASPART 100 UNITS/ML 10ML VIAL ONE ×4 (01:29→21:42)
[2022-01-01] MEDS: MELATONIN 5 MG TABLETS PO PRN ×2 (01:31→22:38)
[2022-01-01] MEDS: hydrOXYzine PAMOATE 25 MG CAPSULE (FP) PO PRN ×3 (01:31→22:38)
[2022-01-01] MEDS: INSULIN SLIDING SCALE (NOVOLOG) 1 VIAL SQ SCH ×5 (01:35→22:37)
[2022-01-01] MEDS: BACITRACIN 0.9 GM PACKET TP SCH ×3 (01:42→22:38)
[2022-01-01] MEDS: metFORMIN HCL 500 MG TABLET (FP) PO SCH ×2 (07:17→17:03)
[2022-01-01] MEDS ORDERED: THIAMINE HCL 100 MG TABLET (FP) PO SCH ×2 (10:00→22:00)
[2022-01-01] MEDS: PRENATAL VITAMINS W/ FOLIC ACID TABLET (FP) PO SCH (10:23)
[2022-01-01 11:03] LABS: HEMATOCRIT 39.8 % (35.4-49); HEMOGLOBIN 13.1 GM/dL (11.7-16.9); MCH 28.2 pg (25.7-33.7); MCHC 32.8 g/dl (32.0-35.9); MEAN CELL VOLUME 85.7 fl (80-96); MEAN PLT VOLUME 10.4 fl (7.5-11.1); PLATELET COUNT 182 10^3/uL (134-434); RBC 4.65 M/mm3 (4.00-5.60); RDW 13.5 % (11.9-15.9); WHITE BLOOD COUNT 8.2 K/mm3 (4.0-10.0)
[2022-01-01 11:24] LABS: ALBUMIN 3.6 g/dl (3.4-5.0); CALCIUM 9.9 mg/dL (8.5-10.1)
[2022-01-01 11:25] LABS: BLOOD UREA NITROGEN 33.7 mg/dL (7-18)
[2022-01-01 11:27] LABS: CREATININE 1.3 mg/dL (0.55-1.3)
[2022-01-01 11:29] LABS: BILIRUBIN,TOTAL 0.3 mg/dL (0.2-1); TOT PROT 6.7 g/dl (6.4-8.2)
[2022-01-01] MEDS: ASPIRIN COATED 81 MG TABLET.EC PO SCH (12:48)
[2022-01-01] MEDS ORDERED: TAMSULOSIN HCL 0.4 MG CAP PO SCH (22:00)
[2022-01-02] MEDS: metFORMIN HCL 500 MG TABLET (FP) PO SCH (06:13)
[2022-01-02] MEDS: INSULIN SLIDING SCALE (NOVOLOG) 1 VIAL SQ SCH ×2 (07:30→12:00)
[2022-01-02 09:18] VITALS: TEMP 96.6
[2022-01-02] MEDS: BACITRACIN 0.9 GM PACKET TP SCH (10:58)
[2022-01-02] MEDS: ASPIRIN COATED 81 MG TABLET.EC PO SCH (10:58)
[2022-01-02] MEDS: PRENATAL VITAMINS W/ FOLIC ACID TABLET (FP) PO SCH (10:58)
[2022-01-02 13:00] VITALS: BP 147/84; PULSE 75
== END 2022-01-02 12:45 | disposition other institution (70) | DRG 897 ==
LOC: YASAS 20:06 → Y6N 23:45
PROVIDERS: ADMIT Allergy & Immunology; ATTEND Surgery
PROC: HZ2ZZZZ Detoxification Services for Substance Abuse Treatment (ICD-10-PCS; principal; 2021-12-31)
DX: F10.230 Alcohol dependence with withdrawal, uncomplicated (principal); F14.20 Cocaine dependence, uncomplicated; F20.0 Paranoid schizophrenia; F12.20 Cannabis dependence, uncomplicated; F17.210 Nicotine dependence, cigarettes, uncomplicated; F19.24 Other psychoactive substance dependence with psychoactive substance-induced mood disorder; E11.9 Type 2 diabetes mellitus without complications; Z79.4 Long term (current) use of insulin; N40.0 Benign prostatic hyperplasia without lower urinary tract symptoms; N52.9 Male erectile dysfunction, unspecified; B18.2 Chronic viral hepatitis C; M54.31 Sciatica, right side
CPT/HCPCS: 36415; 80053; 82962; 85027; 86780; 87811; C9803-CS; U0003; U0005

== ENCOUNTER 2022-01-02 12:55 | Inpatient (IN) | payer OTHER ==
[2022-01-02] MEDS ORDERED: guaiFENesin 200 MG/10 ML 10 ML UNIT-DOSE CUPS PO PRN (14:46)
[2022-01-02] MEDS ORDERED: BENZOCAINE/MENTHOL (CHLORASEPTIC ) LOZENGE MM PRN (14:46)
[2022-01-02] MEDS ORDERED: ACETAMINOPHEN 325 MG TABLET (FP) PO PRN (14:46)
[2022-01-02] MEDS ORDERED: P-EPHED 60MG/TRIPROLIDI 2.5MG TABLET PO PRN (14:46)
[2022-01-02] MEDS ORDERED: MAGNESIUM HYDROX 2400MG/30ML ORAL SUSPENSION 30 ML CUP PO PRN (14:46)
[2022-01-02] MEDS ORDERED: LOPERAMIDE HCL 2 MG CAPSULE PO PRN (14:46)
[2022-01-02] MEDS ORDERED: MAGNESIUM CITRATE 300 ML BOTTLE PO PRN (14:46)
[2022-01-02] MEDS ORDERED: NICOTINE POLACRILEX 2 MG GUM BUC PRN (14:46)
[2022-01-02] MEDS ORDERED: MAG HYDROX/AL HYDROX/SIMETH 30 ML UNIT-DOSE CUP PO PRN (14:46)
[2022-01-02] MEDS ORDERED: NICOTINE 10 MG CARTRIDGE (INHALER) IH PRN (14:46)
[2022-01-02] MEDS: hydrOXYzine PAMOATE 25 MG CAPSULE (FP) PO PRN (16:54)
[2022-01-02] MEDS: metFORMIN HCL 500 MG TABLET (FP) PO SCH (16:54)
[2022-01-02] MEDS: INSULIN SLIDING SCALE (NOVOLOG) 1 VIAL SQ SCH (17:00)
[2022-01-02] MEDS: TAMSULOSIN HCL 0.4 MG CAP PO SCH (21:43)
[2022-01-02] MEDS: MELATONIN 5 MG TABLETS PO SCH (21:43)
[2022-01-02] MEDS: THIAMINE HCL 100 MG TABLET (FP) PO SCH (21:44)
[2022-01-02] MEDS ORDERED: QUEtiapine FUMARATE 50 MG TABLET PO SCH (22:00)
[2022-01-03] MEDS: metFORMIN HCL 500 MG TABLET (FP) PO SCH ×2 (06:23→17:19)
[2022-01-03] MEDS: INSULIN SLIDING SCALE (NOVOLOG) 1 VIAL SQ SCH ×2 (07:45→17:21)
[2022-01-03] MEDS ORDERED: QUEtiapine FUMARATE 25 MG TABLET PO SCH (10:00)
[2022-01-03] MEDS: PRENATAL VITAMINS W/ FOLIC ACID TABLET (FP) PO SCH (10:09)
[2022-01-03] MEDS: ASPIRIN COATED 81 MG TABLET.EC PO SCH (10:09)
[2022-01-03] MEDS: MELATONIN 5 MG TABLETS PO SCH (21:03)
[2022-01-03] MEDS: TAMSULOSIN HCL 0.4 MG CAP PO SCH (21:03)
[2022-01-03] MEDS: THIAMINE HCL 100 MG TABLET (FP) PO SCH (21:03)
[2022-01-04] MEDS: metFORMIN HCL 500 MG TABLET (FP) PO SCH ×2 (06:15→16:59)
[2022-01-04] MEDS: INSULIN SLIDING SCALE (NOVOLOG) 1 VIAL SQ SCH ×2 (07:36→17:01)
[2022-01-04] MEDS: PRENATAL VITAMINS W/ FOLIC ACID TABLET (FP) PO SCH (09:56)
[2022-01-04] MEDS: ASPIRIN COATED 81 MG TABLET.EC PO SCH (09:56)
[2022-01-04] MEDS: ARIPiprazole 5 MG TABLET PO SCH (09:56)
[2022-01-04] MEDS: THIAMINE HCL 100 MG TABLET (FP) PO SCH (21:26)
[2022-01-04] MEDS: TAMSULOSIN HCL 0.4 MG CAP PO SCH (21:26)
[2022-01-04] MEDS: MELATONIN 5 MG TABLETS PO SCH (21:26)
[2022-01-05] MEDS ORDERED: INSULIN SLIDING SCALE (NOVOLOG) 1 VIAL SQ ONE (06:23)
[2022-01-05] MEDS: metFORMIN HCL 500 MG TABLET (FP) PO SCH ×2 (06:24→16:35)
[2022-01-05] MEDS: INSULIN SLIDING SCALE (NOVOLOG) 1 VIAL SQ SCH ×2 (06:26→16:38)
[2022-01-05] MEDS: hydrOXYzine PAMOATE 25 MG CAPSULE (FP) PO PRN (10:02)
[2022-01-05] MEDS: ARIPiprazole 5 MG TABLET PO SCH (10:02)
[2022-01-05] MEDS: PRENATAL VITAMINS W/ FOLIC ACID TABLET (FP) PO SCH (10:02)
[2022-01-05] MEDS: ASPIRIN COATED 81 MG TABLET.EC PO SCH (10:02)
[2022-01-05] MEDS ORDERED: BENZOCAINE 20 % GEL TUBE MM PRN (13:41)
[2022-01-05] MEDS: THIAMINE HCL 100 MG TABLET (FP) PO SCH (21:32)
[2022-01-05] MEDS: TAMSULOSIN HCL 0.4 MG CAP PO SCH (21:32)
[2022-01-05] MEDS: MELATONIN 5 MG TABLETS PO SCH (21:32)
[2022-01-05] MEDS: valACYclovir HCL 500 MG TABLET (FP) PO SCH (21:33)
[2022-01-05] MEDS: INSULIN (LEVEMIR) 100 UNITS/ML UNITS SQ SCH (21:37)
[2022-01-05] MEDS: TOLNAFTATE 1% CREAM 15 GM TUBE TP SCH (21:37)
[2022-01-06] MEDS: metFORMIN HCL 500 MG TABLET (FP) PO SCH ×2 (06:05→16:57)
[2022-01-06] MEDS ORDERED: INSULIN SLIDING SCALE (NOVOLOG) 1 VIAL SQ ONE (06:07)
[2022-01-06] MEDS: INSULIN SLIDING SCALE (NOVOLOG) 1 VIAL SQ SCH ×3 (06:08→21:43)
[2022-01-06] MEDS: valACYclovir HCL 500 MG TABLET (FP) PO SCH (09:14)
[2022-01-06] MEDS: FOLIC ACID 1 MG TABLET (FP) PO SCH (09:14)
[2022-01-06] MEDS: ARIPiprazole 5 MG TABLET PO SCH (09:15)
[2022-01-06] MEDS: PRENATAL VITAMINS W/ FOLIC ACID TABLET (FP) PO SCH (09:15)
[2022-01-06] MEDS: ASPIRIN COATED 81 MG TABLET.EC PO SCH (09:15)
[2022-01-06] MEDS: TOLNAFTATE 1% CREAM 15 GM TUBE TP SCH ×2 (09:16→22:36)
[2022-01-06] MEDS: BACITRACIN 0.9 GM PACKET TP SCH ×2 (09:16→21:19)
[2022-01-06] MEDS: HYDROCORTISONE 0.5% TOPICAL CREAM 30 GM TUBE TP PRN (10:25)
[2022-01-06] MEDS: PATIENT'S OWN MEDICATION (NON-FORMULARY) (Sofosbuvir/Velpatasvir [Epclusa 400 Mg-100 Mg Ta PO SCH (13:13)
[2022-01-06] MEDS: GABAPENTIN 100 MG PO SCH ×2 (13:14→21:19)
[2022-01-06] MEDS: THIAMINE HCL 100 MG TABLET (FP) PO SCH (21:19)
[2022-01-06] MEDS: TAMSULOSIN HCL 0.4 MG CAP PO SCH (21:19)
[2022-01-06] MEDS: MELATONIN 5 MG TABLETS PO SCH (21:19)
[2022-01-06] MEDS: ATORVASTATIN CA 20 MG TABLET (FP) PO SCH (21:22)
[2022-01-06] MEDS: INSULIN (LEVEMIR) 100 UNITS/ML UNITS SQ SCH (21:22)
[2022-01-07] MEDS: GABAPENTIN 100 MG PO SCH ×3 (06:22→21:26)
[2022-01-07] MEDS: metFORMIN HCL 500 MG TABLET (FP) PO SCH ×2 (06:22→16:36)
[2022-01-07] MEDS: INSULIN SLIDING SCALE (NOVOLOG) 1 VIAL SQ SCH ×4 (07:26→21:29)
[2022-01-07] MEDS ORDERED: PATIENT'S OWN MEDICATION (NON-FORMULARY) (Lisinopril [Zestril] 2.5 MG Tablet) PO SCH (10:00)
[2022-01-07] MEDS: BACITRACIN 0.9 GM PACKET TP SCH ×2 (10:14→21:29)
[2022-01-07] MEDS: FOLIC ACID 1 MG TABLET (FP) PO SCH (10:14)
[2022-01-07] MEDS: ASPIRIN COATED 81 MG TABLET.EC PO SCH (10:14)
[2022-01-07] MEDS: PATIENT'S OWN MEDICATION (NON-FORMULARY) (Lisinopril [Zestril] 2.5 MG) PO SCH (10:14)
[2022-01-07] MEDS: ARIPiprazole 5 MG TABLET PO SCH (10:14)
[2022-01-07] MEDS: TOLNAFTATE 1% CREAM 15 GM TUBE TP SCH ×2 (10:15→21:30)
[2022-01-07] MEDS: PATIENT'S OWN MEDICATION (NON-FORMULARY) (Sofosbuvir/Velpatasvir [Epclusa 400 Mg-100 Mg Ta PO SCH (10:15)
[2022-01-07] MEDS: PRENATAL VITAMINS W/ FOLIC ACID TABLET (FP) PO SCH (10:15)
[2022-01-07] MEDS: THIAMINE HCL 100 MG TABLET (FP) PO SCH (21:25)
[2022-01-07] MEDS: MELATONIN 5 MG TABLETS PO SCH (21:25)
[2022-01-07] MEDS: TAMSULOSIN HCL 0.4 MG CAP PO SCH (21:26)
[2022-01-07] MEDS: ATORVASTATIN CA 20 MG TABLET (FP) PO SCH (21:26)
[2022-01-07] MEDS: INSULIN (LEVEMIR) 100 UNITS/ML UNITS SQ SCH (21:29)
[2022-01-08] MEDS: metFORMIN HCL 500 MG TABLET (FP) PO SCH ×2 (06:06→16:40)
[2022-01-08] MEDS: GABAPENTIN 100 MG PO SCH ×3 (06:06→21:12)
[2022-01-08] MEDS ORDERED: INSULIN SLIDING SCALE (NOVOLOG) 1 VIAL SQ ONE (06:07)
[2022-01-08] MEDS: INSULIN SLIDING SCALE (NOVOLOG) 1 VIAL SQ SCH ×4 (06:29→21:14)
[2022-01-08] MEDS: PATIENT'S OWN MEDICATION (NON-FORMULARY) (Lisinopril [Zestril] 2.5 MG) PO SCH (10:16)
[2022-01-08] MEDS: ASPIRIN COATED 81 MG TABLET.EC PO SCH (10:16)
[2022-01-08] MEDS: PRENATAL VITAMINS W/ FOLIC ACID TABLET (FP) PO SCH (10:16)
[2022-01-08] MEDS: BACITRACIN 0.9 GM PACKET TP SCH ×2 (10:16→21:12)
[2022-01-08] MEDS: FOLIC ACID 1 MG TABLET (FP) PO SCH (10:16)
[2022-01-08] MEDS: PATIENT'S OWN MEDICATION (NON-FORMULARY) (Sofosbuvir/Velpatasvir [Epclusa 400 Mg-100 Mg Ta PO SCH (10:17)
[2022-01-08] MEDS: TOLNAFTATE 1% CREAM 15 GM TUBE TP SCH ×2 (10:17→21:13)
[2022-01-08] MEDS: ARIPiprazole 5 MG TABLET PO SCH (10:18)
[2022-01-08] MEDS: MELATONIN 5 MG TABLETS PO SCH (21:12)
[2022-01-08] MEDS: TAMSULOSIN HCL 0.4 MG CAP PO SCH (21:12)
[2022-01-08] MEDS: ATORVASTATIN CA 20 MG TABLET (FP) PO SCH (21:12)
[2022-01-08] MEDS: THIAMINE HCL 100 MG TABLET (FP) PO SCH (21:13)
[2022-01-08] MEDS: INSULIN (LEVEMIR) 100 UNITS/ML UNITS SQ SCH (21:15)
[2022-01-09] MEDS ORDERED: INSULIN SLIDING SCALE (NOVOLOG) 1 VIAL SQ ONE ×2 (02:39→11:11)
[2022-01-09] MEDS: GABAPENTIN 100 MG PO SCH ×3 (06:08→21:29)
[2022-01-09] MEDS: metFORMIN HCL 500 MG TABLET (FP) PO SCH ×2 (06:08→16:47)
[2022-01-09] MEDS: INSULIN SLIDING SCALE (NOVOLOG) 1 VIAL SQ SCH ×4 (06:09→21:31)
[2022-01-09] MEDS: FOLIC ACID 1 MG TABLET (FP) PO SCH (11:01)
[2022-01-09] MEDS: ASPIRIN COATED 81 MG TABLET.EC PO SCH (11:01)
[2022-01-09] MEDS: BACITRACIN 0.9 GM PACKET TP SCH ×2 (11:01→21:30)
[2022-01-09] MEDS: ARIPiprazole 5 MG TABLET PO SCH (11:02)
[2022-01-09] MEDS: PRENATAL VITAMINS W/ FOLIC ACID TABLET (FP) PO SCH (11:03)
[2022-01-09] MEDS: PATIENT'S OWN MEDICATION (NON-FORMULARY) (Lisinopril [Zestril] 2.5 MG) PO SCH (11:03)
[2022-01-09] MEDS: PATIENT'S OWN MEDICATION (NON-FORMULARY) (Sofosbuvir/Velpatasvir [Epclusa 400 Mg-100 Mg Ta PO SCH (11:03)
[2022-01-09] MEDS: TOLNAFTATE 1% CREAM 15 GM TUBE TP SCH ×2 (11:04→21:32)
[2022-01-09] MEDS: TAMSULOSIN HCL 0.4 MG CAP PO SCH (21:29)
[2022-01-09] MEDS: ATORVASTATIN CA 20 MG TABLET (FP) PO SCH (21:29)
[2022-01-09] MEDS: MELATONIN 5 MG TABLETS PO SCH (21:29)
[2022-01-09] MEDS: THIAMINE HCL 100 MG TABLET (FP) PO SCH (21:29)
[2022-01-09] MEDS: INSULIN (LEVEMIR) 100 UNITS/ML UNITS SQ SCH (21:31)
[2022-01-10] MEDS: GABAPENTIN 100 MG PO SCH ×3 (05:38→21:26)
[2022-01-10] MEDS: metFORMIN HCL 500 MG TABLET (FP) PO SCH ×2 (06:29→16:35)
[2022-01-10] MEDS: INSULIN SLIDING SCALE (NOVOLOG) 1 VIAL SQ SCH ×4 (06:30→21:30)
[2022-01-10] MEDS: FOLIC ACID 1 MG TABLET (FP) PO SCH (10:06)
[2022-01-10] MEDS: PATIENT'S OWN MEDICATION (NON-FORMULARY) (Sofosbuvir/Velpatasvir [Epclusa 400 Mg-100 Mg Ta PO SCH (10:06)
[2022-01-10] MEDS: PRENATAL VITAMINS W/ FOLIC ACID TABLET (FP) PO SCH (10:06)
[2022-01-10] MEDS: ASPIRIN COATED 81 MG TABLET.EC PO SCH (10:06)
[2022-01-10] MEDS: ARIPiprazole 5 MG TABLET PO SCH (10:06)
[2022-01-10] MEDS: PATIENT'S OWN MEDICATION (NON-FORMULARY) (Lisinopril [Zestril] 2.5 MG) PO SCH (10:06)
[2022-01-10] MEDS: TOLNAFTATE 1% CREAM 15 GM TUBE TP SCH ×2 (10:06→22:14)
[2022-01-10] MEDS: BACITRACIN 0.9 GM PACKET TP SCH ×2 (10:07→21:26)
[2022-01-10] MEDS: MELATONIN 5 MG TABLETS PO SCH (21:26)
[2022-01-10] MEDS: TAMSULOSIN HCL 0.4 MG CAP PO SCH (21:26)
[2022-01-10] MEDS: ATORVASTATIN CA 20 MG TABLET (FP) PO SCH (21:26)
[2022-01-10] MEDS: THIAMINE HCL 100 MG TABLET (FP) PO SCH (21:26)
[2022-01-10] MEDS: INSULIN (LEVEMIR) 100 UNITS/ML UNITS SQ SCH (21:30)
[2022-01-11] MEDS: GABAPENTIN 100 MG PO SCH ×3 (05:52→21:35)
[2022-01-11] MEDS ORDERED: INSULIN SLIDING SCALE (NOVOLOG) 1 VIAL SQ ONE ×3 (05:53→21:39)
[2022-01-11] MEDS: metFORMIN HCL 500 MG TABLET (FP) PO SCH ×2 (06:04→17:10)
[2022-01-11] MEDS: INSULIN SLIDING SCALE (NOVOLOG) 1 VIAL SQ SCH ×4 (06:04→21:41)
[2022-01-11] MEDS: PRENATAL VITAMINS W/ FOLIC ACID TABLET (FP) PO SCH (10:18)
[2022-01-11] MEDS: ASPIRIN COATED 81 MG TABLET.EC PO SCH (10:18)
[2022-01-11] MEDS: ARIPiprazole 5 MG TABLET PO SCH (10:18)
[2022-01-11] MEDS: FOLIC ACID 1 MG TABLET (FP) PO SCH (10:18)
[2022-01-11] MEDS: PATIENT'S OWN MEDICATION (NON-FORMULARY) (Sofosbuvir/Velpatasvir [Epclusa 400 Mg-100 Mg Ta PO SCH (10:19)
[2022-01-11] MEDS: PATIENT'S OWN MEDICATION (NON-FORMULARY) (Lisinopril [Zestril] 2.5 MG) PO SCH (10:19)
[2022-01-11] MEDS: BACITRACIN 0.9 GM PACKET TP SCH ×2 (10:19→21:34)
[2022-01-11] MEDS: TOLNAFTATE 1% CREAM 15 GM TUBE TP SCH ×2 (10:19→21:35)
[2022-01-11] MEDS: THIAMINE HCL 100 MG TABLET (FP) PO SCH (21:35)
[2022-01-11] MEDS: ATORVASTATIN CA 20 MG TABLET (FP) PO SCH (21:35)
[2022-01-11] MEDS: MELATONIN 5 MG TABLETS PO SCH (21:35)
[2022-01-11] MEDS: INSULIN (LEVEMIR) 100 UNITS/ML UNITS SQ SCH (21:36)
[2022-01-11] MEDS: TAMSULOSIN HCL 0.4 MG CAP PO SCH (21:41)
[2022-01-12] MEDS: hydrOXYzine PAMOATE 25 MG CAPSULE (FP) PO PRN (00:34)
[2022-01-12] MEDS: INSULIN SLIDING SCALE (NOVOLOG) 1 VIAL SQ SCH ×4 (06:49→21:42)
[2022-01-12] MEDS: GABAPENTIN 100 MG PO SCH ×3 (06:50→21:39)
[2022-01-12] MEDS: metFORMIN HCL 500 MG TABLET (FP) PO SCH ×2 (06:50→16:52)
[2022-01-12] MEDS: IBUPROFEN 400 MG TABLET (FP) PO PRN (06:50)
[2022-01-12] MEDS: PRENATAL VITAMINS W/ FOLIC ACID TABLET (FP) PO SCH (10:29)
[2022-01-12] MEDS: ARIPiprazole 5 MG TABLET PO SCH (10:30)
[2022-01-12] MEDS: BACITRACIN 0.9 GM PACKET TP SCH ×2 (10:30→21:38)
[2022-01-12] MEDS: ASPIRIN COATED 81 MG TABLET.EC PO SCH (10:30)
[2022-01-12] MEDS: PATIENT'S OWN MEDICATION (NON-FORMULARY) (Sofosbuvir/Velpatasvir [Epclusa 400 Mg-100 Mg Ta PO SCH (10:31)
[2022-01-12] MEDS: TOLNAFTATE 1% CREAM 15 GM TUBE TP SCH ×2 (10:32→21:42)
[2022-01-12] MEDS: PATIENT'S OWN MEDICATION (NON-FORMULARY) (Lisinopril [Zestril] 2.5 MG) PO SCH (10:33)
[2022-01-12] MEDS ORDERED: INSULIN SLIDING SCALE (NOVOLOG) 1 VIAL SQ ONE (11:24)
[2022-01-12] MEDS: FOLIC ACID 1 MG TABLET (FP) PO SCH (12:19)
[2022-01-12] MEDS: traZODone HCL 50 MG TABLET (FP) PO SCH (21:38)
[2022-01-12] MEDS: THIAMINE HCL 100 MG TABLET (FP) PO SCH (21:39)
[2022-01-12] MEDS: TAMSULOSIN HCL 0.4 MG CAP PO SCH (21:40)
[2022-01-12] MEDS: MELATONIN 5 MG TABLETS PO SCH (21:40)
[2022-01-12] MEDS: ATORVASTATIN CA 20 MG TABLET (FP) PO SCH (21:40)
[2022-01-12] MEDS: INSULIN (LEVEMIR) 100 UNITS/ML UNITS SQ SCH (21:42)
[2022-01-13] MEDS: GABAPENTIN 100 MG PO SCH ×3 (05:42→21:26)
[2022-01-13] MEDS: metFORMIN HCL 500 MG TABLET (FP) PO SCH ×2 (06:56→16:40)
[2022-01-13] MEDS: INSULIN SLIDING SCALE (NOVOLOG) 1 VIAL SQ SCH ×4 (06:56→21:29)
[2022-01-13] MEDS: BACITRACIN 0.9 GM PACKET TP SCH ×2 (10:11→21:26)
[2022-01-13] MEDS: ASPIRIN COATED 81 MG TABLET.EC PO SCH (10:11)
[2022-01-13] MEDS: FOLIC ACID 1 MG TABLET (FP) PO SCH (10:11)
[2022-01-13] MEDS: ARIPiprazole 5 MG TABLET PO SCH (10:11)
[2022-01-13] MEDS: PRENATAL VITAMINS W/ FOLIC ACID TABLET (FP) PO SCH (10:11)
[2022-01-13] MEDS: TOLNAFTATE 1% CREAM 15 GM TUBE TP SCH ×2 (10:12→21:29)
[2022-01-13] MEDS: PATIENT'S OWN MEDICATION (NON-FORMULARY) (Sofosbuvir/Velpatasvir [Epclusa 400 Mg-100 Mg Ta PO SCH (10:12)
[2022-01-13] MEDS: PATIENT'S OWN MEDICATION (NON-FORMULARY) (Lisinopril [Zestril] 2.5 MG) PO SCH (10:12)
[2022-01-13] MEDS: IBUPROFEN 400 MG TABLET (FP) PO PRN (16:41)
[2022-01-13] MEDS: MELATONIN 5 MG TABLETS PO SCH (21:26)
[2022-01-13] MEDS: THIAMINE HCL 100 MG TABLET (FP) PO SCH (21:26)
[2022-01-13] MEDS: traZODone HCL 50 MG TABLET (FP) PO SCH (21:26)
[2022-01-13] MEDS: TAMSULOSIN HCL 0.4 MG CAP PO SCH (21:26)
[2022-01-13] MEDS: ATORVASTATIN CA 20 MG TABLET (FP) PO SCH (21:26)
[2022-01-13] MEDS: INSULIN (LEVEMIR) 100 UNITS/ML UNITS SQ SCH (21:29)
[2022-01-14] MEDS: GABAPENTIN 100 MG PO SCH ×3 (06:23→21:00)
[2022-01-14] MEDS: metFORMIN HCL 500 MG TABLET (FP) PO SCH ×2 (06:23→16:27)
[2022-01-14] MEDS: INSULIN SLIDING SCALE (NOVOLOG) 1 VIAL SQ SCH ×4 (06:24→21:01)
[2022-01-14] MEDS: PATIENT'S OWN MEDICATION (NON-FORMULARY) (Sofosbuvir/Velpatasvir [Epclusa 400 Mg-100 Mg Ta PO SCH (10:26)
[2022-01-14] MEDS: ASPIRIN COATED 81 MG TABLET.EC PO SCH (10:26)
[2022-01-14] MEDS: BACITRACIN 0.9 GM PACKET TP SCH ×2 (10:26→21:01)
[2022-01-14] MEDS: FOLIC ACID 1 MG TABLET (FP) PO SCH (10:26)
[2022-01-14] MEDS: PATIENT'S OWN MEDICATION (NON-FORMULARY) (Lisinopril [Zestril] 2.5 MG) PO SCH (10:26)
[2022-01-14] MEDS: PRENATAL VITAMINS W/ FOLIC ACID TABLET (FP) PO SCH (10:26)
[2022-01-14] MEDS: ARIPiprazole 5 MG TABLET PO SCH (10:27)
[2022-01-14] MEDS: TOLNAFTATE 1% CREAM 15 GM TUBE TP SCH ×2 (11:24→21:02)
[2022-01-14] MEDS: HYDROCORTISONE 0.5% TOPICAL CREAM 30 GM TUBE TP PRN (16:34)
[2022-01-14] MEDS: MELATONIN 5 MG TABLETS PO SCH (21:00)
[2022-01-14] MEDS: TAMSULOSIN HCL 0.4 MG CAP PO SCH (21:00)
[2022-01-14] MEDS: ATORVASTATIN CA 20 MG TABLET (FP) PO SCH (21:00)
[2022-01-14] MEDS: INSULIN (LEVEMIR) 100 UNITS/ML UNITS SQ SCH (21:01)
[2022-01-14] MEDS: THIAMINE HCL 100 MG TABLET (FP) PO SCH (21:01)
[2022-01-14] MEDS: traZODone HCL 50 MG TABLET (FP) PO SCH (21:01)
[2022-01-15] MEDS: GABAPENTIN 100 MG PO SCH ×3 (05:26→21:23)
[2022-01-15] MEDS: INSULIN SLIDING SCALE (NOVOLOG) 1 VIAL SQ SCH ×4 (06:44→21:24)
[2022-01-15] MEDS: metFORMIN HCL 500 MG TABLET (FP) PO SCH ×2 (06:44→16:31)
[2022-01-15] MEDS: FOLIC ACID 1 MG TABLET (FP) PO SCH (10:20)
[2022-01-15] MEDS: ASPIRIN COATED 81 MG TABLET.EC PO SCH (10:20)
[2022-01-15] MEDS: ARIPiprazole 5 MG TABLET PO SCH (10:20)
[2022-01-15] MEDS: PRENATAL VITAMINS W/ FOLIC ACID TABLET (FP) PO SCH (10:20)
[2022-01-15] MEDS: BACITRACIN 0.9 GM PACKET TP SCH ×2 (10:20→21:23)
[2022-01-15] MEDS: PATIENT'S OWN MEDICATION (NON-FORMULARY) (Sofosbuvir/Velpatasvir [Epclusa 400 Mg-100 Mg Ta PO SCH (10:20)
[2022-01-15] MEDS: PATIENT'S OWN MEDICATION (NON-FORMULARY) (Lisinopril [Zestril] 2.5 MG) PO SCH (10:20)
[2022-01-15] MEDS: TOLNAFTATE 1% CREAM 15 GM TUBE TP SCH ×2 (10:22→21:24)
[2022-01-15] MEDS: MELATONIN 5 MG TABLETS PO SCH (21:22)
[2022-01-15] MEDS: THIAMINE HCL 100 MG TABLET (FP) PO SCH (21:22)
[2022-01-15] MEDS: traZODone HCL 50 MG TABLET (FP) PO SCH (21:23)
[2022-01-15] MEDS: TAMSULOSIN HCL 0.4 MG CAP PO SCH (21:23)
[2022-01-15] MEDS: ATORVASTATIN CA 20 MG TABLET (FP) PO SCH (21:23)
[2022-01-15] MEDS: INSULIN (LEVEMIR) 100 UNITS/ML UNITS SQ SCH (21:23)
[2022-01-16] MEDS: GABAPENTIN 100 MG PO SCH (05:54)
[2022-01-16 07:51] VITALS: BP 125/72; PULSE 77; TEMP 97.9
[2022-01-16] MEDS: INSULIN SLIDING SCALE (NOVOLOG) 1 VIAL SQ SCH (08:08)
[2022-01-16] MEDS: metFORMIN HCL 500 MG TABLET (FP) PO SCH (08:09)
[2022-01-16] MEDS: FOLIC ACID 1 MG TABLET (FP) PO SCH (09:18)
[2022-01-16] MEDS: ARIPiprazole 5 MG TABLET PO SCH (09:19)
[2022-01-16] MEDS: ASPIRIN COATED 81 MG TABLET.EC PO SCH (09:19)
[2022-01-16] MEDS: PATIENT'S OWN MEDICATION (NON-FORMULARY) (Sofosbuvir/Velpatasvir [Epclusa 400 Mg-100 Mg Ta PO SCH (09:20)
[2022-01-16] MEDS: PRENATAL VITAMINS W/ FOLIC ACID TABLET (FP) PO SCH (09:20)
[2022-01-16] MEDS: PATIENT'S OWN MEDICATION (NON-FORMULARY) (Lisinopril [Zestril] 2.5 MG) PO SCH (09:20)
[2022-01-16] MEDS: TOLNAFTATE 1% CREAM 15 GM TUBE TP SCH (09:21)
[2022-01-16] MEDS: BACITRACIN 0.9 GM PACKET TP SCH (09:22)
== END 2022-01-16 09:53 | disposition home or self-care (01) | DRG 895 ==
LOC: YASAS 12:55 → Y3W 12:57
PROVIDERS: ADMIT Allergy & Immunology; ATTEND Psychiatry & Neurology Pain Medicine
PROC: HZ42ZZZ Group Counseling for Substance Abuse Treatment, Cognitive-Behavioral (ICD-10-PCS; principal; 2022-01-02)
DX: F10.20 Alcohol dependence, uncomplicated (principal); F14.20 Cocaine dependence, uncomplicated; F19.282 Other psychoactive substance dependence with psychoactive substance-induced sleep disorder; F12.20 Cannabis dependence, uncomplicated; F17.210 Nicotine dependence, cigarettes, uncomplicated; F25.9 Schizoaffective disorder, unspecified; F31.9 Bipolar disorder, unspecified; F19.24 Other psychoactive substance dependence with psychoactive substance-induced mood disorder; G47.00 Insomnia, unspecified; E11.9 Type 2 diabetes mellitus without complications; Z79.84 Long term (current) use of oral hypoglycemic drugs; I10 Essential (primary) hypertension; L85.3 Xerosis cutis; M54.31 Sciatica, right side; N40.0 Benign prostatic hyperplasia without lower urinary tract symptoms; Z59.00 Homelessness unspecified
CPT/HCPCS: 73140-TC-RT-FY; 82962

== ENCOUNTER 2024-03-31 15:04 | Inpatient (IN) | payer OTHER ==
[2024-03-31 15:45] VITALS: BMI 24.6
[2024-03-31] MEDS ORDERED: MAG HYDROX/AL HYDROX/SIMETH 30 ML UNIT-DOSE CUP PO PRN (17:06)
[2024-03-31] MEDS ORDERED: NALOXONE (NARCAN) HCL 4 MG/0.1 ML SPRAY NS PRN (17:06)
[2024-03-31] MEDS ORDERED: guaiFENesin 600 MG TABLET.ER (FP) PO PRN (17:06)
[2024-03-31] MEDS ORDERED: POLYETHYLENE GLYCOL (HEALTHYLAX) 3350 17 GM PACKET PO PRN (17:06)
[2024-03-31] MEDS ORDERED: DICYCLOMINE HCL 10 MG CAPSULE PO PRN (17:06)
[2024-03-31] MEDS ORDERED: BISMUTH SUBSALICYLATE 524 MG/30 ML PO PRN (17:06)
[2024-03-31] MEDS ORDERED: MAGNESIUM HYDROX 2400MG/30ML ORAL SUSPENSION 30 ML CUP PO PRN (17:06)
[2024-03-31] MEDS ORDERED: IBUPROFEN 400 MG TABLET (FP) PO PRN (17:06)
[2024-03-31] MEDS ORDERED: ONDANSETRON *ODT* 4 MG TABLET SL PRN (17:06)
[2024-03-31] MEDS ORDERED: NALOXONE HCL 0.4 MG/ML VIAL IM PRN (17:06)
[2024-03-31] MEDS ORDERED: LOPERAMIDE HCL 2 MG CAPSULE PO PRN (17:06)
[2024-03-31] MEDS ORDERED: LORazepam 1 MG TABLET PO PRN (17:06)
[2024-03-31] MEDS ORDERED: BENZONATATE 200 MG CAPSULE PO PRN (17:06)
[2024-03-31] MEDS ORDERED: BENZOCAINE/MENTHOL (CHLORASEPTIC ) LOZENGE MM PRN (17:06)
[2024-03-31] MEDS: INSULIN (LEVEMIR) 100 UNITS/ML UNITS SQ ONE (20:24)
[2024-03-31] MEDS ORDERED: INSULIN (LEVEMIR) 100 UNITS/ML UNITS SQ ONE (20:30)
[2024-03-31] MEDS: IBUPROFEN 600 MG TABLET (FP) PO PRN (22:18)
[2024-03-31] MEDS: MELATONIN 5 MG TABLETS PO SCH (22:19)
[2024-03-31] MEDS: THIAMINE 100 MG TABLET PO SCH (22:19)
[2024-03-31] MEDS: LORazepam 1 MG TABLET PO SCH (22:35)
[2024-03-31] MEDS ORDERED: LORazepam 2 MG TABLET PO SCH ×2 (23:00)
[2024-04-01] MEDS: INSULIN ASPART SLIDING SCALE (NOVOLOG) 1 VIAL SQ SCH (06:24)
[2024-04-01] MEDS: metFORMIN HCL 500 MG TABLET (FP) PO ONE (10:47)
[2024-04-01] MEDS: ASPIRIN COATED 81 MG TABLET.EC PO SCH (10:48)
[2024-04-01] MEDS: PRENATAL VITAMINS W/ FOLIC ACID TABLET (FP) PO SCH (10:48)
[2024-04-01 11:45] LABS: CHLORIDE 111 mmol/L (98-107); POTASSIUM 4.6 mmol/L (3.5-5.1); SODIUM 142 mmol/L (136-145)
[2024-04-01 11:46] LABS: HEMATOCRIT 34.2 % (35.4-49); HEMOGLOBIN 11.3 GM/dL (11.7-16.9); MEAN CELL VOLUME 84.9 fl (80-96); MEAN PLT VOLUME 10.6 fl (7.5-11.1); PLATELET COUNT 158 10^3/uL (134-434); RBC 4.03 M/mm3 (4.00-5.60); RDW 14.9 % (11.9-15.9); WHITE BLOOD COUNT 5.3 K/mm3 (4.0-10.0)
[2024-04-01 11:50] LABS: SGPT/ALT 35 U/L (13-61)
[2024-04-01] MEDS: LISINOPRIL 5 MG TABLET PO SCH (11:51)
[2024-04-01 11:52] LABS: BLOOD UREA NITROGEN 37.4 mg/dL (7-18); GLUCOSE,RANDOM 333 mg/dL (74-106); SGOT/AST 35 U/L (15-37)
[2024-04-01] MEDS: levETIRAcetam 500 MG TABLET (FP) PO SCH (11:52)
[2024-04-01 11:53] LABS: BILIRUBIN,TOTAL 0.2 mg/dL (0.2-1); TOT PROT 6.1 g/dl (6.4-8.2)
[2024-04-01 11:54] LABS: ALK PHOS 64 U/L (45-117); CALCIUM 8.4 mg/dL (8.5-10.1)
[2024-04-01 11:55] LABS: ANION GAP 10 mmol/L (4-13); CO2 21 mmol/L (21-32); CREATININE 1.3 mg/dL (0.55-1.3)
[2024-04-01] MEDS: GABAPENTIN 100 MG CAPSULE PO SCH (14:25)
[2024-04-01] MEDS: METHOCARBAMOL 500 MG TABLET PO PRN (16:45)
[2024-04-01] MEDS: metFORMIN HCL 500 MG TABLET (FP) PO SCH (16:45)
[2024-04-01] MEDS: ACETAMINOPHEN 325 MG TABLET (FP) PO PRN (20:43)
[2024-04-01] MEDS: hydrOXYzine PAMOATE 25 MG CAPSULE (FP) PO PRN (20:43)
[2024-04-01] MEDS: levETIRAcetam 250 MG TABLET PO SCH (21:07)
[2024-04-01] MEDS: traZODone HCL 50 MG TABLET (FP) PO SCH (21:08)
[2024-04-01] MEDS: TAMSULOSIN HCL 0.4 MG CAP PO SCH (21:08)
[2024-04-01] MEDS: ATORVASTATIN CA 20 MG TABLET (FP) PO SCH (21:09)
[2024-04-01] MEDS ORDERED: risperiDONE 1 MG TABLET PO SCH (22:00)
[2024-04-02] MEDS: LORazepam 1 MG TABLET PO SCH (05:42)
[2024-04-02] MEDS ORDERED: INSULIN ASPART SLIDING SCALE (NOVOLOG) 1 VIAL SQ ONE (06:20)
[2024-04-02] MEDS ORDERED: ARIPiprazole 5 MG TABLET PO SCH (10:00)
[2024-04-03] MEDS ORDERED: LORazepam 0.5 MG TABLET PO PRN
[2024-04-03] MEDS: LORazepam 0.5 MG TABLET PO SCH (05:41)
[2024-04-03] MEDS: CLOTRIMAZOLE 1% CREAM TP SCH (10:53)
[2024-04-04] MEDS: LORazepam 0.5 MG TABLET PO ONE (05:44)
[2024-04-04 08:54] VITALS: BP 121/68; PULSE 67; RESP 18; TEMP 97.4
== END 2024-04-04 14:15 | disposition other institution (70) | DRG 897 ==
LOC: YASAS 15:04 → Y3N 19:15
PROVIDERS: ADMIT Allergy & Immunology; ATTEND Allergy & Immunology
PROC: HZ2ZZZZ Detoxification Services for Substance Abuse Treatment (ICD-10-PCS; principal; 2024-03-31)
DX: F10.230 Alcohol dependence with withdrawal, uncomplicated (principal); F14.20 Cocaine dependence, uncomplicated; F12.20 Cannabis dependence, uncomplicated; F17.210 Nicotine dependence, cigarettes, uncomplicated; F31.9 Bipolar disorder, unspecified; F25.9 Schizoaffective disorder, unspecified; F19.24 Other psychoactive substance dependence with psychoactive substance-induced mood disorder; I10 Essential (primary) hypertension; J45.909 Unspecified asthma, uncomplicated; E11.9 Type 2 diabetes mellitus without complications; Z79.84 Long term (current) use of oral hypoglycemic drugs; B18.2 Chronic viral hepatitis C; M54.31 Sciatica, right side; N40.0 Benign prostatic hyperplasia without lower urinary tract symptoms; Z86.73 Personal history of transient ischemic attack (TIA), and cerebral infarction without residual deficits; Z86.11 Personal history of tuberculosis; Z99.89 Dependence on other enabling machines and devices
CPT/HCPCS: 36415; 80053; 80305; 80307; 82962; 85027; 86780; 87811; 93005; 93010

== ENCOUNTER 2024-04-04 14:04 | Inpatient (IN) | payer OTHER ==
[2024-04-04] MEDS ORDERED: METHOCARBAMOL 500 MG TABLET PO PRN (15:36)
[2024-04-04] MEDS ORDERED: LOPERAMIDE HCL 2 MG CAPSULE PO PRN (15:36)
[2024-04-04] MEDS ORDERED: POLYETHYLENE GLYCOL (HEALTHYLAX) 3350 17 GM PACKET PO PRN (15:36)
[2024-04-04] MEDS ORDERED: MAGNESIUM HYDROX 2400MG/30ML ORAL SUSPENSION 30 ML CUP PO PRN (15:36)
[2024-04-04] MEDS ORDERED: ACETAMINOPHEN 325 MG TABLET (FP) PO PRN (15:36)
[2024-04-04] MEDS ORDERED: IBUPROFEN 600 MG TABLET (FP) PO PRN (15:36)
[2024-04-04] MEDS ORDERED: NICOTINE POLACRILEX 4 MG LOZENGE BC PRN (15:36)
[2024-04-04] MEDS ORDERED: hydrOXYzine PAMOATE 25 MG CAPSULE (FP) PO PRN (15:36)
[2024-04-04] MEDS ORDERED: MAG HYDROX/AL HYDROX/SIMETH 30 ML UNIT-DOSE CUP PO PRN (15:36)
[2024-04-04] MEDS ORDERED: guaiFENesin 600 MG TABLET.ER (FP) PO PRN (15:36)
[2024-04-04] MEDS ORDERED: NALOXONE HCL 0.4 MG/ML VIAL IVPUSH PRN (15:36)
[2024-04-04] MEDS ORDERED: BENZONATATE 200 MG CAPSULE PO PRN (15:36)
[2024-04-04] MEDS ORDERED: BENZOCAINE/MENTHOL (CHLORASEPTIC ) LOZENGE MM PRN (15:36)
[2024-04-04] MEDS ORDERED: NICOTINE POLACRILEX 4 MG GUM BUC PRN (15:36)
[2024-04-04] MEDS ORDERED: NALOXONE (NARCAN) HCL 4 MG/0.1 ML SPRAY NS PRN ×2 (15:36→15:39)
[2024-04-04] MEDS: metFORMIN HCL 500 MG TABLET (FP) PO SCH (17:12)
[2024-04-04] MEDS: INSULIN ASPART SLIDING SCALE (NOVOLOG) 1 VIAL SQ SCH ×2 (18:10→21:15)
[2024-04-04] MEDS: GABAPENTIN 100 MG CAPSULE PO SCH (21:11)
[2024-04-04] MEDS: ATORVASTATIN CA 20 MG TABLET (FP) PO SCH (21:11)
[2024-04-04] MEDS: traZODone HCL 50 MG TABLET (FP) PO SCH (21:12)
[2024-04-04] MEDS: TAMSULOSIN HCL 0.4 MG CAP PO SCH (21:12)
[2024-04-04] MEDS: levETIRAcetam 500 MG TABLET (FP) PO SCH (21:13)
[2024-04-04] MEDS: MELATONIN 5 MG TABLETS PO SCH (21:13)
[2024-04-04] MEDS: THIAMINE 100 MG TABLET PO SCH (21:14)
[2024-04-04] MEDS: INSULIN (LEVEMIR) 100 UNITS/ML UNITS SQ SCH (21:15)
[2024-04-05 06:33] VITALS: BP 153/77; PULSE 76; RESP 18; TEMP 97.6
[2024-04-05] MEDS: IBUPROFEN 400 MG TABLET (FP) PO PRN (06:36)
[2024-04-05] MEDS ORDERED: PATIENT'S OWN MEDICATION (NON-FORMULARY) (Sofosbuvir/Velpatasvir [Epclusa 400 Mg-100 Mg Ta PO SCH (10:00)
[2024-04-05] MEDS: LISINOPRIL 5 MG TABLET PO SCH (10:21)
[2024-04-05] MEDS: PRENATAL VITAMINS W/ FOLIC ACID TABLET (FP) PO SCH (10:21)
[2024-04-05] MEDS: ASPIRIN COATED 81 MG TABLET.EC PO SCH (10:21)
[2024-04-05] MEDS: NICOTINE 14 MG/24 HOURS TOPICAL PATCH TD SCH (10:21)
== END 2024-04-05 10:03 | disposition left against medical advice (07) | DRG 894 ==
LOC: YASAS 14:04 → Y3E 14:06
PROVIDERS: ADMIT Allergy & Immunology; ATTEND Psychiatry & Neurology Pain Medicine
PROC: HZ42ZZZ Group Counseling for Substance Abuse Treatment, Cognitive-Behavioral (ICD-10-PCS; principal; 2024-04-04)
DX: F10.20 Alcohol dependence, uncomplicated (principal); F14.10 Cocaine abuse, uncomplicated; F12.20 Cannabis dependence, uncomplicated; F17.210 Nicotine dependence, cigarettes, uncomplicated; F31.9 Bipolar disorder, unspecified; F20.9 Schizophrenia, unspecified; E11.9 Type 2 diabetes mellitus without complications; J45.909 Unspecified asthma, uncomplicated; M54.31 Sciatica, right side; N40.0 Benign prostatic hyperplasia without lower urinary tract symptoms; B18.2 Chronic viral hepatitis C; Z79.84 Long term (current) use of oral hypoglycemic drugs; Z86.19 Personal history of other infectious and parasitic diseases; Z86.11 Personal history of tuberculosis
CPT/HCPCS: 82140; 82962